=== PATIENT | male | born 1955 ===

== ENCOUNTER 2016-09-04 17:10 | Observation (INO) | payer BC ==
[2016-09-04 17:51] VITALS: BMI 36.3
[2016-09-04] MEDS ORDERED: Aspirin 325 mg EC Tablets PO STA (19:38)
--- NOTE | 2016-09-04 19:38 | C.PDOC ---
History Of Present Illness 60 y/o male presents to the ED with complaints of chest pressure and occasional back pain, worsening since this morning. Back pain is now resolved but still has chest pressure, 4/10 discomfort. Pt speaking in complete sentences. Denies fever, chills, SOB, nausea, vomiting or any other complaints. Time Seen by Provider: 09/04/16 19:37 Chief Complaint (Nursing): Back Pain History Per: Patient History/Exam Limitations: no limitations Onset/Duration Of Symptoms: Hrs Current Symptoms Are (Timing): Worse Quality Of Discomfort: "Pain" Severity: Moderate Pain Scale Rating Of: 4 Previous Symptoms: None Associated Symptoms: None Exacerbating Factor(s): Nothing Recent travel outside of the [place]: No Past Medical History Reviewed: Historical Data, Nursing Documentation, Vital Signs Vital Signs: Last Vital Signs Temp 98.9 F 09/04/16 17:51 Pulse 76 09/04/16 18:21 Resp 14 09/04/16 18:21 BP 117/73 09/04/16 18:21 Pulse Ox 96 09/04/16 19:48 - Medical History PMH: HTN Family History: States: No Known Family Hx - Social History Hx Tobacco Use: No Hx Alcohol Use: No Hx Substance Use: No - Immunization History Hx Tetanus Toxoid Vaccination: No Hx Influenza Vaccination: No Hx Pneumococcal Vaccination: No Review Of Systems Constitutional: Negative for: Fever, Chills Cardiovascular: Positive for: Chest Pain Respiratory: Negative for: Shortness of Breath Gastrointestinal: Negative for: Nausea, Vomiting Physical Exam - Physical Exam Appears: Non-toxic, No Acute Distress Skin: Warm, Dry, No Rash Head: Atraumatic, Normacephalic Eye(s): bilateral: Normal Inspection Oral Mucosa: Moist Neck: Supple Chest: Symmetrical Cardiovascular: Rhythm Regular, No Murmur Respiratory: No Accessory Muscle Use, No Rales, No Rhonchi, No Wheezing Gastrointestinal/Abdominal: Bowel Sounds (normal), Soft, No Tenderness, No Guarding, No Rebound, Other (obese) Back: No CVA Tenderness Extremity: Normal ROM, Pedal Edema (trace) Extremity: Bilateral: Atraumatic, Normal Color And Temperature, Normal ROM Pulses: Left Dorsalis Pedis: Normal, Right Dorsalis Pedis: Normal Neurological/Psych: Oriented x3, Normal Speech, Normal Cognition Gait: Steady ED Course And Treatment - Laboratory Results Result Diagrams: 09/04/16 19:56 09/04/16 19:56 ECG: Interpreted By Me, Viewed By Me ECG Rhythm: Sinus Rhythm (72), Nonspecific Changes O2 Sat by Pulse Oximetry: 96 (room air) Pulse Ox Interpretation: Normal - Radiology CXR: Interpreted by Me, Viewed By Me CXR Interpretation: Yes: Other (coiled aorta). No: Infiltrates, Fracture, Pnemothorax Progress Note: cardiac work up Disposition Discussed With Dr.: Savage Cooper Comment: accepted the pt onhis service and took over the care at 9PM Doctor Will See Patient In The: ED Counseled Patient/Family Regarding: Studies Performed, Diagnosis - Disposition Disposition: HOSPITALIZED Disposition Time: 19:37 Condition: FAIR - POA Present On Arrival: Poor Glycemic Control - Clinical Impression Clinical Impression: Low back pain, Chest pain - Scribe Statement The provider has reviewed the documentation as recorded by the Jorgeibjill Sewell Provider Attestation: All medical record entries made by the Scribe were at my direction and personally dictated by me. I have reviewed the chart and agree that the record accurately reflects my personal performance of the history, physical exam, medical decision making, and the department course for this patient. I have also personally directed, reviewed, and agree with the discharge instructions and disposition. Decision To Admit - Pt Status Changed To: Hospital Disposition Of: Observation - . Bed Request Type: Telemetry Admitting Physician: Savage Cooper Patient Diagnosis: Low back pain, Chest pain
[2016-09-04] MEDS ORDERED: Aspirin 325 mg EC Tablets PO ONE (19:56)
[2016-09-04 19:59] LABS: BASO % 0.3 % (0.0-2.0); EOS # 0.3 K/uL (0.0-0.7); EOS % 4.8 % (0.0-4.0); HEMATOCRIT 42.3 % (35.0-51.0); LYMPH % 32.4 % (20.0-40.0); MEAN CELL VOLUME 88.2 fL (80.0-94.0); MEAN CORPUSCULAR HGB CONC 34.1 g/dL (33.0-37.0); MEAN PLATELET VOLUME 9.8 fL (7.2-11.7); MONO # 0.6 K/uL (0.0-0.8); MONO % 9.6 % (0.0-10.0); NRBC % 0.1 % (0.0-2.0); RED CELL DISTRIBUTION WIDTH 14.2 % (11.5-14.5); WHITE BLOOD COUNT 6.3 K/uL (4.8-10.8)
[2016-09-04 20:07] LABS: INR 1.1
[2016-09-04 20:09] LABS: CHLORIDE 102 mmol/L (98-107); POTASSIUM 3.8 mmol/L (3.6-5.2); SODIUM 143 mmol/L (132-148)
[2016-09-04 20:11] LABS: BILIRUBIN,TOTAL 0.7 mg/dL (0.2-1.3); GFR AFRICAN-AMERICAN > 60
[2016-09-04 20:12] LABS: ALB/GLOB RATIO 1.3 (1.0-2.1); ALKALINE PHOSPHATASE 64 U/L (38-126); ALT/SGPT 37 U/L (21-72); AST/SGOT 28 U/L (17-59); BLOOD UREA NITROGEN 22 mg/dL (9-20); CALCIUM 9.3 mg/dl (8.6-10.4); CARBON DIOXIDE 20 mmol/L (22-30); GLUCOSE,RANDOM 168 mg/dL (75-110); TOTAL PROTEIN 7.8 g/dL (6.3-8.3)
[2016-09-04 20:36] LABS: RBC URINE < 1 /hpf (0-3); URINE BILIRUBIN NEGATIVE (NEGATIVE); URINE BLOOD NEGATIVE (NEGATIVE); URINE COLOR Yellow (YELLOW); URINE GLUCOSE (UA) NORMAL (Normal); URINE HYALINE CAST >20 /lpf (0-2); URINE KETONE NEGATIVE (NEGATIVE); URINE LEUKOCYTE ESTERASE TRACE Leu/uL (Negative); URINE PROTEIN NEGATIVE (NEGATIVE); URINE UROBILINOGEN NORMAL mg/dL (0.2-1.0); WBC URINE 3 /hpf (0-5)
--- NOTE | 2016-09-04 21:08 | CP.PCM.HP ---
<Adryan Davis - Last Filed: 09/05/16 01:45> History of Present Illness - History of Present Illness History of Present Illness: CC: "I had pain and pressure in my chest, and I have back pain that's different from ever before." HPI: 60 y.o. male with PMHx HTN, hyperlipidemia - presents to the ED c/ o chest pain and L sided chest pressure since 4pm. 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 He admits the chest pain was associated with a feeling of pressure in the left chest. He denies radiation of chest pain, and nothing made it better or worse. Patient states that Chest pain lasted for approximately 30 minutes, and resolved upon arrival to the ED (prior to administration of ASA). He admits to swelling of his lower extremities nightly for several months and SOB after going up 3 flights of stairs for the same time period. He denies orthopnea. Pt denies fever, chills, change in vision, dizziness, headache, SOB, abdominal pain , nausea, vomiting, LE pain, or any additional acute complaints. Patient also complains of intermittent mid-left back pain that has been present for several years, exacerbated by increased activity. Most recently, he walked over 30 blocks, and his back pain became worst at 8/10. Currently his back pain is 6/ 10. Extra strength Tylenol has helped moderately. ED course: ASA 325, Ct angio r/o aortic dissection. ROS: General: Weight loss of 5lbs/2 mos. Weakness "all of the time" past 1 month. Pt denies fever, chills, night sweats. Skin: denies itching, rash. HEENT: Pt denies OBRIEN, dizziness, change in vision, change in hearing, sore throat , dysphagia, congestion. Cardio: c/o swelling in feet every evening. Pt denies orthopnea, positional chest pain. Respiratory: dyspnea on exertion (after 3rd flight of stairs). Pt denies, cough , sputum. GI: pt denies abdominal pain, d/c/n/v, dysphagia. : pt denies dysuria, change in freq. PMH: HTN, hyperlipidemia. PSHx: appendectomy, tonsilectomy Meds: Norvasc 10mg PO qd; Lipitor 40mg PO qd; Losartan 100mg PO qd; HCTZ 12.5mg PO qd; MV Allergies: absent: food, environmental, medication FamHx: Mom [place] (65 y.o.), maternal aunt [place] (55 y.o.) SocHx: Pt denies use of tobacco, alcohol, drugs. Pt. lives [place] [facility] [address] [address] [place], works in IT (desk job) in [employer]. PMD: Dr. Eugenie Carr Present on Admission - Present on Admission Any Indicators Present on Admission: No Review of Systems - Constitutional Constitutional: As Per HPI - EENT Eyes: As Per HPI - Cardiovascular Cardiovascular: As Per HPI - Respiratory Respiratory: As Per HPI - Gastrointestinal Gastrointestinal: As Per HPI - Genitourinary Genitourinary: As Per HPI - Musculoskeletal Musculoskeletal: Back Pain. absent: Numbness, Tingling - Integumentary Integumentary: absent: Bleeding Lesions, Dry Skin, New Lesions - Neurological Neurological: absent: Confusion, Dizziness, Weakness - Psychiatric Psychiatric: absent: Anxiety, Confusion, Irritability - Hematologic/Lymphatic Hematologic: absent: Easy Bleeding, Easy Bruising, Lymphadenopathy Past Patient History - Past Social History Smoking Status: Never Smoked - CARDIAC Hx Hypertension: Yes - PSYCHIATRIC Hx Substance Use: No - SURGICAL HISTORY Hx Surgeries: No Meds Allergies/Adverse Reactions: Allergies Allergy/AdvReac Type Severity Reaction Status Date / Time No Known Allergies Allergy Verified 09/04/16 17:46 Physical Exam - Constitutional Appears: Non-toxic, No Acute Distress - Head Exam Head Exam: ATRAUMATIC, NORMAL INSPECTION - Eye Exam Eye Exam: EOMI, Normal appearance, PERRL Pupil Exam: NORMAL ACCOMODATION - ENT Exam ENT Exam: Mucous Membranes Moist - Neck Exam Neck exam: Negative for: Lymphadenopathy, Tenderness - Respiratory Exam Respiratory Exam: Clear to Auscultation Bilateral, NORMAL BREATHING PATTERN. absent: Rales, Wheezes - Cardiovascular Exam Cardiovascular Exam: REGULAR RHYTHM. absent: Tachycardia, Diastolic murmur - GI/Abdominal Exam GI & Abdominal Exam: Normal Bowel Sounds, Soft. absent: Tenderness - Extremities Exam Extremities exam: Positive for: normal inspection. Negative for: pedal edema, tenderness - Back Exam Back exam: NORMAL INSPECTION. absent: CVA tenderness (L), CVA tenderness (R), paraspinal tenderness, tenderness Additional comments: Patient reports back pain, however no pain on palpation No change in pain with flexion / extension - Neurological Exam Neurological exam: Alert, CN II-XII Intact, Oriented x3 - Psychiatric Exam Psychiatric exam: Normal Affect, Normal Mood - Skin Skin Exam: Dry, Intact, Normal Color, Warm Results - Vital Signs Recent Vital Signs: Last Vital Signs Temp 98.9 F 09/04/16 17:51 Pulse 76 09/04/16 18:21 Resp 14 09/04/16 18:21 BP 117/73 09/04/16 18:21 Pulse Ox 96 09/04/16 21:04 - Labs Result Diagrams: 09/04/16 19:56 09/04/16 19:56 Labs: Laboratory Results - last 24 hr 09/04/16 09/04/16 09/04/16 19:56 19:56 19:56 WBC 6.3 RBC 4.80 Hgb 14.4 Hct 42.3 MCV 88.2 MCH 30.0 MCHC 34.1 RDW 14.2 Plt Count 200 MPV 9.8 Neut % (Auto) 52.9 Lymph % (Auto) 32.4 Worth % (Auto) 9.6 Eos % (Auto) 4.8 H Baso % (Auto) 0.3 Neut # 3.3 Lymph # 2.0 Worth # 0.6 Eos # 0.3 Baso # 0.0 PT 12.2 INR 1.1 APTT 30 Sodium 143 Potassium 3.8 Chloride 102 Carbon Dioxide 20 L Anion Gap 25 H BUN 22 H Creatinine 1.3 Est GFR ( Amer) > 60 Est GFR (Non-Af Amer) 57 Random Glucose 168 H Calcium 9.3 Total Bilirubin 0.7 AST 28 ALT 37 Alkaline Phosphatase 64 Troponin I < 0.0120 NT-Pro-B Natriuret Pep 197 Total Protein 7.8 Albumin 4.4 Globulin 3.4 Albumin/Globulin Ratio 1.3 Lipase 96 Urine Color Urine Clarity Urine pH Ur Specific [place] Urine Protein Urine Glucose (UA) Urine Ketones Urine Blood Urine Nitrate Urine Bilirubin Urine Urobilinogen Ur Leukocyte Esterase Urine WBC (Auto) Urine RBC (Auto) Ur Squamous Epith Cells Hyaline Casts 09/04/16 20:05 WBC RBC Hgb Hct MCV MCH MCHC RDW Plt Count MPV Neut % (Auto) Lymph % (Auto) Worth % (Auto) Eos % (Auto) Baso % (Auto) Neut # Lymph # Worth # Eos # Baso # PT INR APTT Sodium Potassium Chloride Carbon Dioxide Anion Gap BUN Creatinine Est GFR ( Amer) Est GFR (Non-Af Amer) Random Glucose Calcium Total Bilirubin AST ALT Alkaline Phosphatase Troponin I NT-Pro-B Natriuret Pep Total Protein Albumin Globulin Albumin/Globulin Ratio Lipase Urine Color Yellow Urine Clarity Clear Urine pH 5.0 Ur Specific [place] 1.019 Urine Protein Negative Urine Glucose (UA) Normal Urine Ketones Negative Urine Blood Negative Urine Nitrate Negative Urine Bilirubin Negative Urine Urobilinogen Normal Ur Leukocyte Esterase Trace Urine WBC (Auto) 3 Urine RBC (Auto) < 1 Ur Squamous Epith Cells < 1 Hyaline Casts >20 H Assessment & Plan - Assessment and Plan (Free Text) Assessment: Chest pain * ECG Rhythm: Sinus Rhythm (72), Nonspecific Changes * r/o aortic dissection * f/u CT angio chest - negative * D5W-NS 100cc/hr to aid kidney function (BUN 22 / Cr 1.3 on admission) * ASA 81 * f/u FLP, A1c, TSH, free T4 * Resume home meds: Norvasc 10mg PO qd; Lipitor 40mg PO qd; Losartan 100mg PO qd ; HCTZ 12.5mg PO qd * Pain - Tylenol 650mg PO Q6H PRN * Oxygen 2L NC Hyaline Cast on UA * UA negative except for hylaine casts > 20 * f/u urine eosinophils * Continue workup as outpatient * Anion Gap 25 - monitor Lower back pain * Currently stable * No back pain on palpation Prophylaxis * D5W-NS 100cc/hr * SCDs C/I due to pedal edema * Pepcid 20mg PO * Heart healthy diet. - Date & Time Date: 09/04/16 Time: 21:15 <Savage Cooper P - Last Filed: 09/05/16 07:15> Results - Vital Signs Recent Vital Signs: Last Vital Signs Temp 97.5 F L 09/05/16 04:00 Pulse 63 09/05/16 04:00 Resp 20 09/05/16 04:00 BP 117/76 09/05/16 04:00 Pulse Ox 98 09/05/16 04:00 - Labs Result Diagrams: 09/04/16 19:56 09/05/16 06:52 Labs: Laboratory Results - last 24 hr 09/05/16 09/05/16 03:03 06:52 Sodium 143 Potassium 3.8 Chloride 102 Carbon Dioxide 23 Anion Gap 22 H BUN 24 H Creatinine 1.2 Est GFR ( Amer) > 60 Est GFR (Non-Af Amer) > 60 Random Glucose 111 H Calcium 9.2 Phosphorus 4.1 Magnesium 2.0 Total Bilirubin 0.9 AST 27 ALT 41 Alkaline Phosphatase 66 Total Creatine Kinase 126 CK-MB (Mass) 0.48 Troponin I, Quant < 0.0120 Total Protein 7.5 Albumin 4.1 Globulin 3.4 Albumin/Globulin Ratio 1.2 Triglycerides 164 H Cholesterol 116 HDL Cholesterol 25 L Attending/Attestation - Attestation I have personally seen and examined this patient.: Yes I have fully participated in the care of the patient.: Yes I have reviewed all pertinent clinical information: Yes Notes (Text): 09/05/16 07:11 Atypical cp intermittent for few seconds, c/o some back pain, ed w/u negative including, CTA dissection study, EKG, troponin, slight low bicarb noticed, with anion gap which has not corrected dispite dextrose overnight, urine also showed cast, will repeat toponin, urinalysis, osm toan, vbg shock panel, clinically patient has been stable without any signs or symptoms of shock.
[2016-09-04] MEDS ORDERED: Rosuvastatin Calcium 2.5 mg Tab PO SCH (22:00)
[2016-09-04] MEDS ORDERED: Iodixanol 320 MG/ML 100 ML BOTTLE IV ONE (22:26)
--- NOTE | 2016-09-04 23:24 | CT ---
EXAM: CT Angiography Chest With Intravenous Contrast CLINICAL HISTORY: 60 years old, male; Pain; Chest pain; Additional info: Poss aortic disection TECHNIQUE: Axial computed tomographic angiography images of the chest with intravenous contrast using pulmonary embolism protocol. This CT exam was performed using one or more of the following dose reduction techniques: automated exposure control, adjustment of the mA and/or kV according to patient size, and/or use of iterative reconstruction technique. MIP reconstructed images were created and reviewed. Coronal and sagittal reformatted images were created and reviewed. CONTRAST: 100 mL of [id number] administered intravenously. COMPARISON: No relevant prior studies available. FINDINGS: Pulmonary arteries: No pulmonary embolism. Aorta: No thoracic aortic aneurysm. No dissection. Lungs: No mass. No consolidation. Trace right basilar atelectasis. Pleural spaces: No significant effusion. No pneumothorax. Heart: No cardiomegaly. No significant pericardial effusion. No evidence of right heart dysfunction. Bones: No acute fracture. Lymph nodes: No pathologically enlarged lymph nodes. IMPRESSION: No aortic dissection or pulmonary embolus.
[2016-09-05] MEDS: Dextrose 5%/0.9% NS 1,000 ML IV SCH ×4 (00:04→22:19)
[2016-09-05 07:04] LABS: ALB/GLOB RATIO 1.2 (1.0-2.1); ALKALINE PHOSPHATASE 66 U/L (38-126); ALT/SGPT 41 U/L (21-72); AST/SGOT 27 U/L (17-59); BILIRUBIN,TOTAL 0.9 mg/dL (0.2-1.3); BLOOD UREA NITROGEN 24 mg/dL (9-20); CALCIUM 9.2 mg/dl (8.6-10.4); CARBON DIOXIDE 23 mmol/L (22-30); CHLORIDE 102 mmol/L (98-107); CHOLESTEROL 116 mg/dL (0-199); GFR AFRICAN-AMERICAN > 60; GLUCOSE,RANDOM 111 mg/dL (75-110); PHOSPHOROUS 4.1 mg/dL (2.5-4.5); POTASSIUM 3.8 mmol/L (3.6-5.2); SODIUM 143 mmol/L (132-148); TOTAL PROTEIN 7.5 g/dL (6.3-8.3)
[2016-09-05 07:31] LABS: THYROID STIMULATING HORMONE 2.98 mIU/L (0.46-4.68)
--- NOTE | 2016-09-05 07:57 | CP.PCM.PN ---
<French Mclaughlin - Last Filed: 09/06/16 00:14> Subjective - Date & Time of Evaluation Date of Evaluation: 09/05/16 Time of Evaluation: 07:51 - Subjective Subjective: PGY-[address] Francis's service: Patient seen and examined at beside. Nursing reports no acute events overnight. Patient is resting comfortably in bed in no acute distress. Patient states that his symptoms have improved greatly and experienced no chest pain, chest pressure or palpitations overnight. Patient states that he did not sleep very well last night since the nursing staff was having difficulty drawing blood from his arms. Patient states that he ate a little this morning without any problems and has been urinating okay with no recent bowel movement due to low food ingestion. Patient denies fevers, chills, chest pain, palpitations, SOB, abdominal pain, nausea, vomiting, diarrhea, constipation or leg swelling. Objective - Vital Signs/Intake and Output Vital Signs (last 24 hours): Temp Pulse Resp BP Pulse Ox 97.5 F L 63 20 117/76 98 09/05/16 04:00 09/05/16 04:00 09/05/16 04:00 09/05/16 04:00 09/05/16 04:00 Intake and Output: 09/05/16 09/05/16 06:59 18:59 Intake Total 700 Balance 700 - Medications Medications: Current Medications Amlodipine Besylate (Norvasc) 10 mg PO DAILY [facility] Famotidine (Pepcid) 20 mg PO BID [facility] Hydrochlorothiazide (Microzide) 12.5 mg PO DAILY [facility] Dextrose/Sodium Chloride (Dextrose 5%/0.9% Ns 1000 Ml) 1,000 mls @ 100 mls/hr IV .Q10H [facility] Last Admin: 09/05/16 00:04 Dose: 100 mls/hr Losartan Potassium (Cozaar) 100 mg PO DAILY [facility] Pneumococcal Polyvalent Vaccine (Pneumovax 23 Vaccine) 0.5 ml IM .ONCE ONE Stop: 09/06/16 10:01 Rosuvastatin Calcium (Crestor) 10 mg PO HS [facility] - Labs Labs: 09/05/16 06:52 PT 12.2 SECONDS (9.7-12.2) 09/04/16 19:56 INR 1.1 09/04/16 19:56 APTT 30 SECONDS (21-34) 09/04/16 19:56 - Constitutional Appears: Non-toxic, No Acute Distress - Head Exam Head Exam: ATRAUMATIC, NORMAL INSPECTION, NORMOCEPHALIC - Eye Exam Eye Exam: EOMI, Normal appearance. absent: Scleral icterus Pupil Exam: PERRL - ENT Exam ENT Exam: Mucous Membranes Moist - Neck Exam Neck Exam: absent: Lymphadenopathy Additional comments: NO JVD due to excess body habitus in jaw line - Respiratory Exam Respiratory Exam: Clear to Ausculation Bilateral, NORMAL BREATHING PATTERN. absent: Rales, Rhonchi, Wheezes - Cardiovascular Exam Cardiovascular Exam: REGULAR RHYTHM, +S1, +S2. absent: +S4, Murmur - GI/Abdominal Exam GI & Abdominal Exam: Soft, Normal Bowel Sounds. absent: Distended, Tenderness - Extremities Exam Extremities Exam: Normal Inspection. absent: Pedal Edema, Tenderness - Back Exam Back Exam: absent: paraspinal tenderness, vertebral tenderness Additional comments: Skin tags noted on chest back - Neurological Exam Neurological Exam: Alert, Awake, Oriented x3 - Psychiatric Exam Psychiatric exam: Normal Affect, Normal Mood - Skin Skin Exam: Normal Color, Warm Assessment and Plan - Assessment and Plan (Free Text) Plan: Chest pain R/o aortic dissection ECG Rhythm: Sinus Rhythm (72), Nonspecific Changes CT angio chest (09/05/16) - negative for PE, aortic dissection CXR (09/05/16): Mild venous congestion. Mild patchy bibasilar airspace opacities. (See full report) ERIKA negative x 3 f/u ECHO ASA 81 Tylenol 650mg PO Q6H PRN Crestor 10mg PO HS Oxygen 2L NC FLP - Tri 164, Total Chol 116, LDL 62, HDL 25 A1C: 7.9 TSH free T4: WNL Acute Kidney Injury BUN 22 / Cr 1.3 on admission - Cr slightly improved to 1.2 NS @ 100cc/hr UA (09/05/16): > 20 hyaline casts Type two diabetes mellitus Newly diagnosed A1C: 7.9 Accuchecks Discontinued D5/NS ISS- medium - will consider metformin if Cr decreases HTN Normotensive NS @ 100cc/hr Resume home meds: Norvasc 10mg PO qd; Lipitor 40mg PO qd; Losartan 100mg PO qd; HCTZ 12.5mg PO qd Hyaline Cast on UA UA negative except for hylaine casts > 20 f/u urine eosinophils Continue workup as outpatient Anion Gap 25 - monitor Lower back pain Currently stable No back pain on palpation Prophylaxis NS @100cc/hr SCDs C/I due to pedal edema Pepcid 20mg PO Heart healthy diet Discussed with Dr. Penny Mclaughlin <Dada Francis - Last Filed: 10/10/16 15:01> Objective - Vital Signs/Intake and Output Vital Signs (last 24 hours): Temp Pulse Resp BP Pulse Ox 98.5 F 78 20 137/79 99 09/07/16 16:00 09/07/16 16:00 09/07/16 16:00 09/07/16 16:00 09/07/16 16:00 - Labs Labs: 09/07/16 06:07 09/07/16 06:07 PT 12.2 SECONDS (9.7-12.2) 09/04/16 19:56 INR 1.1 09/04/16 19:56 APTT 30 SECONDS (21-34) 09/04/16 19:56 Attending/Attestation - Attestation I have personally seen and examined this patient.: Yes I have fully participated in the care of the patient.: Yes I have reviewed all pertinent clinical information, including history, physical exam and plan: Yes Notes (Text): Chest pain Acute Kidney Injury Type two diabetes mellitus Newly diagnosed
[2016-09-05 08:22] LABS: VENOUS BLOOD GAS BASE EXCESS 1.2 mmol/L (0.0-2.0); VENOUS BLOOD GAS PCO2 50 mmHg (40-60); VENOUS BLOOD PH 7.35 (7.32-7.43)
[2016-09-05 08:39] LABS: BASO % 0.5 % (0.0-2.0); EOS # 0.3 K/uL (0.0-0.7); EOS % 4.6 % (0.0-4.0); HEMATOCRIT 40.3 % (35.0-51.0); LYMPH % 35.9 % (20.0-40.0); MEAN CELL VOLUME 88.2 fL (80.0-94.0); MEAN CORPUSCULAR HEMOGLOBIN 30.7 pg (27.0-31.0); MEAN CORPUSCULAR HGB CONC 34.8 g/dL (33.0-37.0); MEAN PLATELET VOLUME 9.3 fL (7.2-11.7); MONO # 0.5 K/uL (0.0-0.8); MONO % 8.9 % (0.0-10.0); NRBC % 0.1 % (0.0-2.0); RED CELL DISTRIBUTION WIDTH 14.4 % (11.5-14.5); WHITE BLOOD COUNT 5.7 K/uL (4.8-10.8)
--- NOTE | 2016-09-05 08:42 | RAD ---
PROCEDURE: CHEST RADIOGRAPH, 1 VIEW HISTORY: chest pain COMPARISON: None available. FINDINGS: LUNGS: Mild venous congestion. Mild patchy bibasilar airspace opacities. PLEURA: No pneumothorax or pleural fluid seen. CARDIOVASCULAR: Tortuous aorta. OSSEOUS STRUCTURES: Degenerative changes in the spine. VISUALIZED UPPER ABDOMEN: Normal. OTHER FINDINGS: None. IMPRESSION: Mild venous congestion. Mild patchy bibasilar airspace opacities.
[2016-09-05] MEDS: Enoxaparin 40 mg Syringe SC SCH (10:32)
[2016-09-05 12:12] LABS: RBC URINE < 1 /hpf (0-3); URINE BILIRUBIN NEGATIVE (NEGATIVE); URINE BLOOD NEGATIVE (NEGATIVE); URINE COLOR Yellow (YELLOW); URINE GLUCOSE (UA) 2+ mg/dL (Normal); URINE KETONE NEGATIVE (NEGATIVE); URINE LEUKOCYTE ESTERASE NEG Leu/uL (Negative); URINE PROTEIN NEGATIVE (NEGATIVE); URINE UROBILINOGEN NORMAL mg/dL (0.2-1.0); WBC URINE < 1 /hpf (0-5)
[2016-09-06] MEDS: Sodium Chloride 0.9% 1,000 ML IV SCH ×4 (00:21→20:15)
[2016-09-06] MEDS: (Novolin R) Insulin Human Regular 100 units/ml vial SC SCH ×4 (07:30→22:19)
[2016-09-06 08:03] LABS: BASO % 0.5 % (0.0-2.0); EOS # 0.3 K/uL (0.0-0.7); EOS % 5.4 % (0.0-4.0); HEMATOCRIT 40.6 % (35.0-51.0); LYMPH # 1.5 K/uL (1.0-4.3); LYMPH % 30.9 % (20.0-40.0); MEAN CELL VOLUME 88.2 fL (80.0-94.0); MEAN CORPUSCULAR HEMOGLOBIN 29.7 pg (27.0-31.0); MEAN CORPUSCULAR HGB CONC 33.7 g/dL (33.0-37.0); MEAN PLATELET VOLUME 9.5 fL (7.2-11.7); MONO # 0.4 K/uL (0.0-0.8); MONO % 8.9 % (0.0-10.0); NRBC % 0.1 % (0.0-2.0); RED CELL DISTRIBUTION WIDTH 14.2 % (11.5-14.5); WHITE BLOOD COUNT 4.9 K/uL (4.8-10.8)
[2016-09-06 08:18] LABS: CHLORIDE 101 mmol/L (98-107); SODIUM 140 mmol/L (132-148)
[2016-09-06 08:20] LABS: GFR AFRICAN-AMERICAN > 60
[2016-09-06 08:21] LABS: ALB/GLOB RATIO 1.2 (1.0-2.1); ALKALINE PHOSPHATASE 60 U/L (38-126); AST/SGOT 22 U/L (17-59); BILIRUBIN,TOTAL 0.8 mg/dL (0.2-1.3); BLOOD UREA NITROGEN 15 mg/dL (9-20); CARBON DIOXIDE 22 mmol/L (22-30); GLUCOSE,RANDOM 122 mg/dL (75-110); PHOSPHOROUS 2.9 mg/dL (2.5-4.5)
[2016-09-06 08:22] LABS: ALT/SGPT 39 U/L (21-72); CALCIUM 8.6 mg/dl (8.6-10.4); MAGNESIUM 1.8 mg/dL (1.6-2.3)
--- NOTE | 2016-09-06 09:05 | CARD ---
APPROVED REPORT EKG Measurement Heart [id number] [id number] [id number] <Conclusion> Normal sinus rhythm Minimal voltage criteria for LVH, may be normal variant Borderline ECG
--- NOTE | 2016-09-06 09:31 | CP.PCM.CON ---
History of Present Illness - History of Present Illness History of Present Illness: CC: chest pain Admitted with moderate intensity chest pain in the precordial region lasting minutes without radiation or exacerbating or relieving factors Systems review: dyspnea and edema Denied palpitations syncope Past medical: systemic hypertension Hyperlipidemia Obesity Past surgery:appendectomy, tonsilectomy Social: denied smoking alcohol or drug abuse No family history of premature coronary disease or sudden Past Patient History - Past Medical History & Family History Past Medical History?: Yes - Past Social History Smoking Status: Never Smoked - CARDIAC Hx Hypertension: Yes - PULMONARY Hx Respiratory Disorders: No - NEUROLOGICAL Hx Neurological Disorder: No - HEENT Hx HEENT Problems: No - RENAL Hx Chronic Kidney Disease: No - ENDOCRINE/METABOLIC Hx Endocrine Disorders: No - HEMATOLOGICAL/ONCOLOGICAL Hx Blood Disorders: No - INTEGUMENTARY Hx Dermatological Problems: No - MUSCULOSKELETAL/RHEUMATOLOGICAL Hx Musculoskeletal Disorders: No Hx Falls: No - GASTROINTESTINAL Hx Gastrointestinal Disorders: No - GENITOURINARY/GYNECOLOGICAL Hx Genitourinary Disorders: No - PSYCHIATRIC Hx Substance Use: No - SURGICAL HISTORY Hx Surgeries: No - ANESTHESIA Hx Anesthesia: Yes Hx Anesthesia Reactions: No Hx Malignant Hyperthermia: No Has any member of the family had a problem w/ anesthesia?: No Meds Allergies/Adverse Reactions: Allergies Allergy/AdvReac Type Severity Reaction Status Date / Time No Known Allergies Allergy Verified 09/04/16 17:46 - Medications Medications: Current Medications Amlodipine Besylate (Norvasc) 10 mg PO DAILY [facility] Last Admin: 09/05/16 10:32 Dose: 10 mg Aspirin (Ecotrin) 81 mg PO DAILY [facility] [place] Enoxaparin Sodium (Lovenox) 40 mg SC DAILY [facility] [place] Last Admin: 09/05/16 10:32 Dose: 40 mg Famotidine (Pepcid) 20 mg PO BID [facility] Last Admin: 09/05/16 17:28 Dose: 20 mg Hydralazine HCl (Apresoline) 25 mg PO QID [facility] Hydrochlorothiazide (Microzide) 12.5 mg PO DAILY [facility] [place] Last Admin: 09/05/16 10:32 Dose: 12.5 mg Sodium Chloride (Sodium Chloride 0.9%) 1,000 mls @ 100 mls/hr IV .Q10H [facility] [place] Last Admin: 09/06/16 00:21 Dose: 100 mls/hr Insulin Human Regular (Novolin R) 0 unit SC [facility] PRN Reason: Protocol Last Admin: 09/06/16 07:30 Dose: Not Given Losartan Potassium (Cozaar) 100 mg PO DAILY [facility] Last Admin: 09/05/16 10:32 Dose: 100 mg Pneumococcal Polyvalent Vaccine (Pneumovax 23 Vaccine) 0.5 ml IM .ONCE ONE Stop: 09/06/16 10:01 Rosuvastatin Calcium (Crestor) 10 mg PO HS [facility] Last Admin: 09/05/16 22:19 Dose: 10 mg Physical Exam - Head Exam Head Exam: NORMAL INSPECTION - Eye Exam Eye Exam: EOMI - ENT Exam ENT Exam: Normal Exam - Neck Exam Neck exam: Positive for: Normal Inspection - Respiratory Exam Respiratory Exam: Clear to Auscultation Bilateral - Cardiovascular Exam Cardiovascular Exam: REGULAR RHYTHM - Extremities Exam Additional comments: Trace edema DP faint Results - Vital Signs Recent Vital Signs: Last Vital Signs Temp 98.0 F 09/06/16 07:56 Pulse 63 09/06/16 07:56 Resp 20 09/06/16 07:56 BP 137/77 09/06/16 07:56 Pulse Ox 100 09/06/16 07:56 - Labs Result Diagrams: 09/07/16 06:07 09/07/16 06:07 Labs: Laboratory Results - last 24 hr 09/05/16 09/05/16 09/06/16 12:04 12:04 07:53 WBC 4.9 RBC 4.60 Hgb 13.7 Hct 40.6 MCV 88.2 MCH 29.7 MCHC 33.7 RDW 14.2 Plt Count 184 MPV 9.5 Neut % (Auto) 54.3 Lymph % (Auto) 30.9 [place] % (Auto) 8.9 Eos % (Auto) 5.4 H Baso % (Auto) 0.5 Neut # 2.7 Lymph # 1.5 [place] # 0.4 Eos # 0.3 Baso # 0.0 Sodium Potassium Chloride Carbon Dioxide Anion Gap BUN Creatinine Est GFR ( Amer) Est GFR (Non-Af Amer) Random Glucose Calcium Phosphorus Magnesium Total Bilirubin AST ALT Alkaline Phosphatase Total Creatine Kinase 116 CK-MB (Mass) 0.48 Troponin I, Quant < 0.0120 Total Protein Albumin Globulin Albumin/Globulin Ratio Urine Color Yellow Urine Clarity Clear Urine pH 6.0 Ur Specific [place] 1.024 Urine Protein Negative Urine Glucose (UA) 2+ H Urine Ketones Negative Urine Blood Negative Urine Nitrate Negative Urine Bilirubin Negative Urine Urobilinogen Normal Ur Leukocyte Esterase Neg Urine WBC (Auto) < 1 Urine RBC (Auto) < 1 Ur Squamous Epith Cells 1 09/06/16 07:53 WBC RBC Hgb Hct MCV MCH MCHC RDW Plt Count MPV Neut % (Auto) Lymph % (Auto) [place] % (Auto) Eos % (Auto) Baso % (Auto) Neut # Lymph # [place] # Eos # Baso # Sodium 140 Potassium 4.0 Chloride 101 Carbon Dioxide 22 Anion Gap 22 H BUN 15 Creatinine 0.9 Est GFR ( Amer) > 60 Est GFR (Non-Af Amer) > 60 Random Glucose 122 H Calcium 8.6 Phosphorus 2.9 Magnesium 1.8 Total Bilirubin 0.8 AST 22 ALT 39 Alkaline Phosphatase 60 Total Creatine Kinase CK-MB (Mass) Troponin I, Quant Total Protein 7.0 Albumin 3.9 Globulin 3.1 Albumin/Globulin Ratio 1.2 Urine Color Urine Clarity Urine pH Ur Specific [place] Urine Protein Urine Glucose (UA) Urine Ketones Urine Blood Urine Nitrate Urine Bilirubin Urine Urobilinogen Ur Leukocyte Esterase Urine WBC (Auto) Urine RBC (Auto) Ur Squamous Epith Cells Assessment & Plan - Assessment and Plan (Free Text) Assessment: Case reviewed Chest pain syndrome on a background of some vascular risk factors and no definitive evidence of myocardial injury; EKG was unremarkable; Echo showed mild dilatation of the LV with normal systolic ejection fraction However cardiovascular imaging does suggest the presence of at the least non obstructive coronary disease as evidenced by the CT angio and the echo showing calcification on the aortic valves surrogates of coronary disease if KS is excluded would obtain a stress test and continue with risk factor modificaiton
--- NOTE | 2016-09-06 09:56 | CARD ---
APPROVED REPORT EXAM: Two-dimensional and M-mode echocardiogram with Doppler and color Doppler. Other Information Quality : AverageRhythm : INDICATION Dyspnea Chest Pain M-Mode DIMENSIONS RVDd1.85 (2.1-3.2cm)Left Atrium (MM)4.37 (2.5-4.0cm) IVSd1.20 (0.7-1.1cm)Aortic Root4.12 (2.2-3.7cm) LVDd7.09 (4.0-5.6cm)Aortic Cusp Exc.2.23 (1.5-2.0cm) PWd1.20 (0.7-1.1cm)FS (%) 28 % LVDs5.07 (2.0-3.8cm)LVEF (%)54 (>50%) Mitral Valve MV E Dtmlhmow18.4cm/sMV A Sqetlnlx10.7cm/sE/A ratio0.8 TDI E/Lateral E'0.0E/Medial E'0.0 Tricuspid Valve TR Peak [id number]/sTR Peak Gr.[id number] LEFT VENTRICLE The Left Ventricle is moderately dilated on M mode. There is mild concentric left ventricular hypertrophy. Left ventricle systolic function is normal with Ejection Fraction of 50-55%. There is normal LV segmental wall motion. Transmitral Doppler flow pattern is normal for age.abnormal. No left ventricle thrombus noted on this study. RIGHT VENTRICLE The right ventricle is normal size. The right ventricular systolic function is normal. ATRIA The left atrium is mildly dilated. The right atrium size is normal. AORTIC VALVE The aortic valve is mildly thickened. The aortic valve is trileaflet. No aortic regurgitation is present. There is no aortic valvular stenosis. There is no aortic valvular vegetation. MITRAL VALVE Mitral annular calcification is mild. There is no evidence of mitral valve prolapse. There is no mitral valve stenosis. There is no mitral valve regurgitation noted. TRICUSPID VALVE The tricuspid valve is normal in structure. There is mild tricuspid regurgitation. Right ventricular systolic pressure is <30 mm Hg. There is no pulmonary hypertension. There is no tricuspid valve prolapse or vegetation. There is no tricuspid valve stenosis. PULMONIC VALVE The pulmonic valve is not well visualized. GREAT VESSELS The aortic root is mildly enlarged. IVC Doppler evaluation reveals normal flow patterns. PERICARDIAL EFFUSION There is no pericardial effusion. There is no pleural effusion. <Conclusion> The Left Ventricle is moderately dilated on M mode. There is mild concentric left ventricular hypertrophy. Left ventricle systolic function is normal with Ejection Fraction of 50-55%. Transmitral Doppler flow pattern is normal for age.abnormal. The right ventricle is normal size. The right ventricular systolic function is normal. The left atrium is mildly dilated. The right atrium size is normal. There is mild tricuspid regurgitation.
[2016-09-06] MEDS ORDERED: Pneumococcal 23-Valent Vaccine IM ONE (10:00)
[2016-09-06] MEDS: Enoxaparin 40 mg Syringe SC SCH (10:42)
--- NOTE | 2016-09-06 15:27 | CP.PCM.PN ---
<Cara Hernandez - Last Filed: 09/06/16 15:22> Subjective - Date & Time of Evaluation Date of Evaluation: 09/06/16 Time of Evaluation: 07:00 - Subjective Subjective: PGY1- Medicine Note- Dr. Francis's Service Patient seen and examined at bedside and in no acute distress. Patient has no complaints and is feeling okay today. Patient denies shortness of breath, chest pain, abdominal pain, nausea, vomiting, constipation, diarrhea. Objective - Vital Signs/Intake and Output Vital Signs (last 24 hours): Temp Pulse Resp BP Pulse Ox 98.0 F 63 20 137/77 100 09/06/16 07:56 09/06/16 07:56 09/06/16 07:56 09/06/16 07:56 09/06/16 07:56 Intake and Output: 09/06/16 09/06/16 06:59 18:59 Intake Total 2460 Balance 2460 - Medications Medications: Current Medications Amlodipine Besylate (Norvasc) 10 mg PO DAILY [facility] Last Admin: 09/06/16 10:42 Dose: 10 mg Aspirin (Ecotrin) 81 mg PO DAILY [facility] Last Admin: 09/06/16 10:42 Dose: 81 mg Enoxaparin Sodium (Lovenox) 40 mg SC DAILY [facility] Last Admin: 09/06/16 10:42 Dose: 40 mg Famotidine (Pepcid) 20 mg PO BID [facility] Last Admin: 09/06/16 10:42 Dose: 20 mg Hydralazine HCl (Apresoline) 25 mg PO QID [facility] Last Admin: 09/06/16 14:37 Dose: 25 mg Hydrochlorothiazide (Microzide) 12.5 mg PO DAILY [facility] Last Admin: 09/06/16 10:42 Dose: 12.5 mg Sodium Chloride (Sodium Chloride 0.9%) 1,000 mls @ 100 mls/hr IV .Q10H [facility] Last Admin: 09/06/16 10:15 Dose: Not Given Insulin Human Regular (Novolin R) 0 unit SC [facility] PRN Reason: Protocol Last Admin: 09/06/16 12:30 Dose: Not Given Losartan Potassium (Cozaar) 100 mg PO DAILY [facility] Last Admin: 09/05/16 10:32 Dose: 100 mg Rosuvastatin Calcium (Crestor) 10 mg PO HS [facility] Last Admin: 09/05/16 22:19 Dose: 10 mg - Labs Labs: 09/06/16 07:53 09/06/16 07:53 PT 12.2 SECONDS (9.7-12.2) 09/04/16 19:56 INR 1.1 09/04/16 19:56 APTT 30 SECONDS (21-34) 09/04/16 19:56 - Constitutional Appears: Well, Non-toxic, No Acute Distress - Head Exam Head Exam: ATRAUMATIC, NORMAL INSPECTION, NORMOCEPHALIC - Eye Exam Eye Exam: EOMI, Normal appearance, PERRL - ENT Exam ENT Exam: Mucous Membranes Moist, Normal Exam - Neck Exam Neck Exam: Full ROM, Normal Inspection. absent: Lymphadenopathy - Respiratory Exam Respiratory Exam: Clear to Ausculation Bilateral, NORMAL BREATHING PATTERN. absent: Rales, Rhonchi, Wheezes, Respiratory Distress, Stridor - Cardiovascular Exam Cardiovascular Exam: REGULAR RHYTHM, RRR. absent: Gallop, Rubs, Murmur - GI/Abdominal Exam GI & Abdominal Exam: Soft, Normal Bowel Sounds. absent: Distended, Firm, Guarding, Rigid - Extremities Exam Extremities Exam: Full ROM, Normal Inspection - Back Exam Back Exam: NORMAL INSPECTION - Neurological Exam Neurological Exam: Alert, Awake, Oriented x3 - Psychiatric Exam Psychiatric exam: Normal Affect, Normal Mood Assessment and Plan - Assessment and Plan (Free Text) Assessment: Chest pain r/o aortic dissection, r/o MS ECG Rhythm: Sinus Rhythm (72), Nonspecific Changes CT angio chest (09/05/16) - negative for PE, aortic dissection CXR (09/05/16): Mild venous congestion. Mild patchy bibasilar airspace opacities. (See full report) ERIKA negative x 3 ECHO (09/05): left ventricle is moderately dilated, mild concentric left ventricular hypertrophy, left ventricle systolic function is normal with ejection fraction of 50-55%m transmitral doppler flow pattern is normal for age , right ventricle is normal size meds: * ASA 81 * Tylenol 650mg PO Q6H PRN * Crestor 10mg PO HS * Oxygen 2L NC Labs: * FLP - Tri 164, Total Chol 116, LDL 62, HDL 25 * TSH, free T4: WNL Stress test to be done by Dr. Stovall on 09/07/16 Acute Kidney Injury BUN 22 / Cr 1.3 on admission - Cr improved to .9 (09/06) NS @ 100cc/hr UA (09/05/16): > 20 hyaline casts Type two diabetes mellitus Newly diagnosed HgA1C: 7.9 Accuchecks Discontinued D5/NS ISS- medium Metformin 500 mg BID to be started as creatinine has decreased to .9 -monitor LFTs HTN Normotensive NS @ 100cc/hr Resume home meds: Norvasc 10mg PO qd; Losartan 100mg PO qd; HCTZ 12.5mg PO qd Lipitor 40mg PO qd nonformulary, given Crestor 10 mg po HS Hyaline Cast on UA UA negative except for hylaine casts > 20 urine eosinophils negative Continue workup as outpatient Anion Gap 25 - monitor Lower back pain Currently stable No back pain on palpation Prophylaxis NS @100cc/hr SCDs C/I due to pedal edema Pepcid 20mg PO Heart healthy diet <Dada Francis - Last Filed: 10/10/16 15:03> Objective - Vital Signs/Intake and Output Vital Signs (last 24 hours): Temp Pulse Resp BP Pulse Ox 98.5 F 78 20 137/79 99 09/07/16 16:00 09/07/16 16:00 09/07/16 16:00 09/07/16 16:00 09/07/16 16:00 - Labs Labs: 09/07/16 06:07 09/07/16 06:07 PT 12.2 SECONDS (9.7-12.2) 09/04/16 19:56 INR 1.1 09/04/16 19:56 APTT 30 SECONDS (21-34) 09/04/16 19:56 Attending/Attestation - Attestation I have personally seen and examined this patient.: Yes I have fully participated in the care of the patient.: Yes I have reviewed all pertinent clinical information, including history, physical exam and plan: Yes Notes (Text): Chest pain Stress test to be done by Dr. Stovall on 09/07/16 Type two diabetes mellitus Newly diagnosed Metformin 500 mg BID to be started
[2016-09-07 06:20] LABS: BASO % 0.5 % (0.0-2.0); EOS # 0.3 K/uL (0.0-0.7); EOS % 5.3 % (0.0-4.0); HEMATOCRIT 40.6 % (35.0-51.0); LYMPH # 1.5 K/uL (1.0-4.3); LYMPH % 26.4 % (20.0-40.0); MEAN CELL VOLUME 87.4 fL (80.0-94.0); MEAN CORPUSCULAR HEMOGLOBIN 30.1 pg (27.0-31.0); MEAN CORPUSCULAR HGB CONC 34.4 g/dL (33.0-37.0); MEAN PLATELET VOLUME 9.3 fL (7.2-11.7); MONO # 0.5 K/uL (0.0-0.8); MONO % 8.2 % (0.0-10.0); WHITE BLOOD COUNT 5.8 K/uL (4.8-10.8)
[2016-09-07] MEDS: Sodium Chloride 0.9% 1,000 ML IV SCH (06:25)
[2016-09-07 06:32] LABS: ALB/GLOB RATIO 1.4 (1.0-2.1); ALKALINE PHOSPHATASE 63 U/L (38-126); ALT/SGPT 37 U/L (21-72); AST/SGOT 23 U/L (17-59); BILIRUBIN,TOTAL 0.6 mg/dL (0.2-1.3); BLOOD UREA NITROGEN 16 mg/dL (9-20); CALCIUM 8.7 mg/dl (8.6-10.4); CARBON DIOXIDE 23 mmol/L (22-30); CHLORIDE 101 mmol/L (98-107); GFR AFRICAN-AMERICAN > 60; GLUCOSE,RANDOM 116 mg/dL (75-110); PHOSPHOROUS 3.2 mg/dL (2.5-4.5); POTASSIUM 3.5 mmol/L (3.6-5.2); SODIUM 139 mmol/L (132-148); TOTAL PROTEIN 6.4 g/dL (6.3-8.3)
[2016-09-07] MEDS: (Novolin R) Insulin Human Regular 100 units/ml vial SC SCH ×3 (08:14→17:37)
--- NOTE | 2016-09-07 10:09 | CP.PCM.PN ---
Subjective - Date & Time of Evaluation Date of Evaluation: 09/07/16 Time of Evaluation: 10:08 - Subjective Subjective: Offered no complaints Objective - Vital Signs/Intake and Output Vital Signs (last 24 hours): Temp Pulse Resp BP Pulse Ox 98.2 F 66 20 132/82 98 09/07/16 07:35 09/07/16 07:35 09/07/16 07:35 09/07/16 07:35 09/07/16 07:35 Intake and Output: 09/07/16 09/07/16 06:59 18:59 Intake Total 1999 Balance 1999 - Medications Medications: Current Medications Amlodipine Besylate (Norvasc) 10 mg PO DAILY [facility] Last Admin: 09/06/16 10:42 Dose: 10 mg Aspirin (Ecotrin) 81 mg PO DAILY [facility] Last Admin: 09/06/16 10:42 Dose: 81 mg Enoxaparin Sodium (Lovenox) 40 mg SC DAILY [facility] Last Admin: 09/06/16 10:42 Dose: 40 mg Famotidine (Pepcid) 20 mg PO BID [facility] Last Admin: 09/06/16 17:09 Dose: 20 mg Hydralazine HCl (Apresoline) 25 mg PO QID [facility] Last Admin: 09/06/16 22:22 Dose: 25 mg Hydrochlorothiazide (Microzide) 12.5 mg PO DAILY [facility] Last Admin: 09/06/16 10:42 Dose: 12.5 mg Sodium Chloride (Sodium Chloride 0.9%) 1,000 mls @ 100 mls/hr IV .Q10H [facility] Last Admin: 09/07/16 06:25 Dose: 100 mls/hr Insulin Human Regular (Novolin R) 0 unit SC [facility] PRN Reason: Protocol Last Admin: 09/07/16 08:14 Dose: Not Given Losartan Potassium (Cozaar) 100 mg PO DAILY [facility] Last Admin: 09/05/16 10:32 Dose: 100 mg Metformin HCl (Glucophage) 500 mg PO BIDCC [facility] Last Admin: 09/07/16 08:15 Dose: Not Given Rosuvastatin Calcium (Crestor) 10 mg PO HS [facility] Last Admin: 09/06/16 22:22 Dose: 10 mg - Labs Labs: 09/07/16 06:07 09/07/16 06:07 PT 12.2 SECONDS (9.7-12.2) 09/04/16 19:56 INR 1.1 09/04/16 19:56 APTT 30 SECONDS (21-34) 09/04/16 19:56 - Constitutional Appears: Well - Head Exam Head Exam: NORMAL INSPECTION - Eye Exam Eye Exam: Normal appearance - ENT Exam ENT Exam: Normal Exam - Neck Exam Neck Exam: Normal Inspection - Cardiovascular Exam Cardiovascular Exam: REGULAR RHYTHM, +S1, +S2. absent: Murmur - Extremities Exam Extremities Exam: Normal Inspection - Neurological Exam Neurological Exam: Alert, Oriented x3 - Psychiatric Exam Psychiatric exam: Normal Mood Assessment and Plan - Assessment and Plan (Free Text) Assessment: Clinically status quo Further work up contingent on stress test results Uptitrate ACEI given LV dilatation Plan: As outlined
[2016-09-07] MEDS: Enoxaparin 40 mg Syringe SC SCH ×2 (10:57→11:32)
[2016-09-07 11:46] VITALS: O2SAT 99
[2016-09-07] MEDS ORDERED: Potassium Chloride 20 mEq ER Tab PO ONE (14:05)
[2016-09-07 17:08] VITALS: BP 137/79; PULSE 78; RESP 20; TEMP 98.5
--- NOTE | 2016-09-07 17:18 | CP.PCM.DIS ---
<Cara Hernandez - Last Filed: 09/07/16 17:14> Provider - Provider Date of Admission: 09/04/16 21:00 Attending physician: Savage Cooper MD Consults: Dr. Stovall (cardiology) Time Spent in preparation of Discharge (in minutes): 45 Diagnosis - Discharge Diagnosis (1) Hypertension Status: Acute (2) Diabetes Status: Acute (3) Chest pain Status: Resolved Hospital Course - Lab Results Lab Results: Most Recent Lab Values WBC 5.8 K/uL (4.8-10.8) 09/07/16 06:07 RBC 4.65 Mil/uL (4.40-5.90) 09/07/16 06:07 Hgb 14.0 g/dL (12.0-18.0) 09/07/16 06:07 Hct 40.6 % (35.0-51.0) 09/07/16 06:07 MCV 87.4 fL (80.0-94.0) 09/07/16 06:07 MCH 30.1 pg (27.0-31.0) 09/07/16 06:07 MCHC 34.4 g/dL (33.0-37.0) 09/07/16 06:07 RDW 14.0 % (11.5-14.5) 09/07/16 06:07 Plt Count 177 K/uL (130-400) 09/07/16 06:07 MPV 9.3 fL (7.2-11.7) 09/07/16 06:07 Neut % (Auto) 59.6 % (50.0-75.0) 09/07/16 06:07 Lymph % (Auto) 26.4 % (20.0-40.0) 09/07/16 06:07 [place] % (Auto) 8.2 % (0.0-10.0) 09/07/16 06:07 Eos % (Auto) 5.3 % (0.0-4.0) H 09/07/16 06:07 Baso % (Auto) 0.5 % (0.0-2.0) 09/07/16 06:07 Neut # 3.5 K/uL (1.8-7.0) 09/07/16 06:07 Lymph # 1.5 K/uL (1.0-4.3) 09/07/16 06:07 [place] # 0.5 K/uL (0.0-0.8) 09/07/16 06:07 Eos # 0.3 K/uL (0.0-0.7) 09/07/16 06:07 Baso # 0.0 K/uL (0.0-0.2) 09/07/16 06:07 PT 12.2 SECONDS (9.7-12.2) 09/04/16 19:56 INR 1.1 09/04/16 19:56 APTT 30 SECONDS (21-34) 09/04/16 19:56 pO2 20 mm/Hg (30-55) L 09/05/16 08:18 VBG pH 7.35 (7.32-7.43) 09/05/16 08:18 VBG pCO2 50 mmHg (40-60) 09/05/16 08:18 VBG HCO3 24.0 mmol/L 09/05/16 08:18 VBG Total CO2 29.1 mmol/L (22-28) H 09/05/16 08:18 VBG O2 Sat (Calc) 34.5 % (40-65) L 09/05/16 08:18 VBG Base Excess 1.2 mmol/L (0.0-2.0) 09/05/16 08:18 VBG Potassium 3.8 mmol/L (3.6-5.2) 09/05/16 08:18 Sodium 140.0 mmol/l (132-148) 09/05/16 08:18 Chloride 107.0 mmol/L (98-107) 09/05/16 08:18 Glucose 156 mg/dl (75-110) H 09/05/16 08:18 Lactate 1.6 mmol/L (0.7-2.1) 09/05/16 08:18 Sodium 139 mmol/L (132-148) 09/07/16 06:07 Potassium 3.5 mmol/L (3.6-5.2) L 09/07/16 06:07 Chloride 101 mmol/L (98-107) 09/07/16 06:07 Carbon Dioxide 23 mmol/L (22-30) 09/07/16 06:07 Anion Gap 19 (10-20) 09/07/16 06:07 BUN 16 mg/dL (9-20) 09/07/16 06:07 Creatinine 1.0 MG/DL (0.8-1.5) 09/07/16 06:07 Est GFR ( Amer) > 60 09/07/16 06:07 Est GFR (Non-Af Amer) > 60 09/07/16 06:07 POC Glucose (mg/dL) 164 mg/dL (65-110) H 09/07/16 11:37 Random Glucose 116 mg/dL (75-110) H 09/07/16 06:07 Hemoglobin A1c 7.9 % (4.2-6.5) H 09/05/16 08:33 Serum Osmolality 301 mosm/kg (272-300) H 09/05/16 08:33 Calcium 8.7 mg/dl (8.6-10.4) 09/07/16 06:07 Phosphorus 3.2 mg/dL (2.5-4.5) 09/07/16 06:07 Magnesium 2.0 mg/dL (1.6-2.3) 09/07/16 06:07 Total Bilirubin 0.6 mg/dL (0.2-1.3) 09/07/16 06:07 AST 23 U/L (17-59) 09/07/16 06:07 ALT 37 U/L (21-72) 09/07/16 06:07 Alkaline Phosphatase 63 U/L (38-126) 09/07/16 06:07 Total Creatine Kinase 116 U/L (55-170) 09/05/16 12:04 CK-MB (Mass) 0.48 ng/mL (0.0-3.38) 09/05/16 12:04 Troponin I < 0.0120 ng/mL (0.00-0.120) 09/04/16 19:56 Troponin I, Quant < 0.0120 ng/mL (0.00-0.120) 09/05/16 12:04 NT-Pro-B Natriuret Pep 197 pg/mL (0-900) 09/04/16 19:56 Total Protein 6.4 g/dL (6.3-8.3) 09/07/16 06:07 Albumin 3.8 g/dL (3.5-5.0) 09/07/16 06:07 Globulin 2.7 gm/dL (2.2-3.9) 09/07/16 06:07 Albumin/Globulin Ratio 1.4 (1.0-2.1) 09/07/16 06:07 Triglycerides 164 mg/dL (0-149) H 09/05/16 06:52 Cholesterol 116 mg/dL (0-199) 09/05/16 06:52 LDL Cholesterol Direct 62 mg/dL (0-129) 09/05/16 06:52 HDL Cholesterol 25 mg/dL (30-70) L 09/05/16 06:52 Lipase 96 U/L (23-300) 09/04/16 19:56 Free T4 0.99 ng/dL (0.78-2.19) 09/05/16 08:33 TSH 3rd Generation 2.98 mIU/L (0.46-4.68) 09/05/16 06:52 Venous Blood Potassium 3.8 mmol/L (3.6-5.2) 09/05/16 08:18 Urine Color Yellow (YELLOW) 09/05/16 12:04 Urine Clarity Clear (Clear) 09/05/16 12:04 Urine pH 6.0 (5.0-8.0) 09/05/16 12:04 Ur Specific [place] 1.024 (1.003-1.030) 09/05/16 12:04 Urine Protein Negative mg/dL (NEGATIVE) 09/05/16 12:04 Urine Glucose (UA) 2+ mg/dL (Normal) H 09/05/16 12:04 Urine Ketones Negative mg/dL (NEGATIVE) 09/05/16 12:04 Urine Blood Negative (NEGATIVE) 09/05/16 12:04 Urine Nitrate Negative (NEGATIVE) 09/05/16 12:04 Urine Bilirubin Negative (NEGATIVE) 09/05/16 12:04 Urine Urobilinogen Normal mg/dL (0.2-1.0) 09/05/16 12:04 Ur Leukocyte Esterase Neg Nehemias/uL (Negative) 09/05/16 12:04 Urine WBC (Auto) < 1 /hpf (0-5) 09/05/16 12:04 Urine RBC (Auto) < 1 /hpf (0-3) 09/05/16 12:04 Ur Squamous Epith Cells 1 /hpf (0-5) 09/05/16 12:04 Hyaline Casts >20 /lpf (0-2) H 09/04/16 20:05 Urine Eosinophils Negative (NEGATIVE) 09/04/16 03:02 - Hospital Course Hospital Course: CC: "I had pain and pressure in my chest, and I have back pain that's different from ever before." HPI: 60 yo male with PMHx HTN, hyperlipidemia - presents to the ED c/o chest pain and L sided chest pressure since 4pm. The chest pain began while sitting at his desk in [employer] and describes it as throbbing, rated 4/10. He admits the chest pain was associated with a feeling of pressure in the left chest. He denies radiation of chest pain, and nothing made it better or worse. Patient states that chest pain lasted for approximately 30 minutes, and resolved upon arrival to ED (prior administration to [facility]). He admits to swelling of his lower extremities nightly for several months and SOB after going up 3 flights of stairs for the same time period. He denies orthopnea. Patient denies fever , chills, change in vision, dizziness, headache, SOB, abdominal pain, nausea, vomiting, LE pain, or any additional acute complaints. Patient also complains of intermittent mid left back pain that has been present for several years, exacerbated by increased activity. Most recently, he walked over 30 blocks, and his back pain became worse at 8/10. Currently his back pain is 6/10. Extra strength Tylenol has helped moderately. Patient admitted on 09/04/16 for chest pain. Patient admitted for chest pain. [employer] Dr. Stovall was consulted. ECG found sinus rhythm and non specific changes. Troponins were negative [address] angiogram [09/05] of chest was found to be negative for PE and aortic dissection. Echo [09/05] found LVEF 50-55%, LV moderately dilated, mild concentric left ventricle hypertrophy. CXR [09/05] found mild venous congestion and mild patchy bibasilar airspace opacities. Right ventricle is normal size and transmitral doppler flow pattern is normal for age. TSH, free T4 [09/05]was within normal limits. Fasting lipid panel [09/05] found triglycerides 164H, HDL 25L, and cholesterol 116, LDL 62. Myocardial perfusion scan nucleotide [09/07] was performed with results pending, Dr. Stovall contacted stress test and cleared patient for discharge. Patient to follow up outpatient. Patient had acute kidney injury with BUN/Cr found to be 22/1.3 on admission. Urine analysis on [09/05] found over 20 hyaline casts. Creatinine improved to 1 [09/07]. Patient was newly diagnosed with type two diabetes, A1c was 7.9 [09/05]. Patient monitored, educated, treated. Patient treated and monitored for his chronic hypertension. Prophylactic measures were administered. Discharge Exam - Head Exam Head Exam: NORMAL INSPECTION - Eye Exam Eye Exam: EOMI, Normal appearance, PERRL - ENT Exam ENT Exam: Mucous Membranes Moist - Neck Exam Neck exam: Full Rom - Respiratory Exam Respiratory Exam: Clear to PA & Lateral, NORMAL BREATHING PATTERN - Cardiovascular Exam Cardiovascular Exam: REGULAR RHYTHM, RRR - GI/Abdominal Exam GI & Abdominal Exam: Normal Bowel Sounds, Unremarkable - Extremities Exam Extremities exam: full ROM - Back Exam Back exam: NORMAL INSPECTION - Neurological Exam Neurological exam: Alert, Oriented x3 - Psychiatric Exam Psychiatric exam: Normal Affect, Normal Mood - Skin Skin Exam: Intact, Normal Color, Warm Discharge Plan - Follow Up Plan Condition: FAIR Disposition: HOME/ ROUTINE Instructions: Aspirin (By mouth), Hydralazine (By mouth), Amlodipine (By mouth) , Metformin (By mouth), Losartan/Hydrochlorothiazide (By mouth), Rosuvastatin ( By mouth), Chest Pain (DC), Acute Kidney Injury (DC), Heart Healthy Diet (DC), Diabetic Foot Care (DC), Diabetes Mellitus Type 2 in Adults (DC), Basic Carbohydrate Counting (DC), Meal Planning with the Plate Method (DC), Meal Planning with Diabetes Exchanges (DC) Additional Instructions: Patient stable for discharge as per Dr. Francis. Patient to follow up with Dr. Stovall within one week (please call [phone]). Patient to take the following medications: Norvasc 10 mg po daily Aspirin 81 mg po daily Hydralazine 25mg po 4 times a day Losartan -HCTZ 100-12.5 mg 1 tab daily metformin 500 mg po twice a day crestor 10 mg po at night Please return to emergency room immediately if symptoms return. Patient explained instructions who understands and agrees. Referrals: Zonia Stovall MD [Staff Provider] - <Dada Francsi - Last Filed: 10/10/16 15:08> Provider - Provider Date of Admission: 09/04/16 21:00 Attending physician: Savage Cooper MD Hospital Course - Lab Results Lab Results: Most Recent Lab Values WBC 5.8 K/uL (4.8-10.8) 09/07/16 06:07 RBC 4.65 Mil/uL (4.40-5.90) 09/07/16 06:07 Hgb 14.0 g/dL (12.0-18.0) 09/07/16 06:07 Hct 40.6 % (35.0-51.0) 09/07/16 06:07 MCV 87.4 fL (80.0-94.0) 09/07/16 06:07 MCH 30.1 pg (27.0-31.0) 09/07/16 06:07 MCHC 34.4 g/dL (33.0-37.0) 09/07/16 06:07 RDW 14.0 % (11.5-14.5) 09/07/16 06:07 Plt Count 177 K/uL (130-400) 09/07/16 06:07 MPV 9.3 fL (7.2-11.7) 09/07/16 06:07 Neut % (Auto) 59.6 % (50.0-75.0) 09/07/16 06:07 Lymph % (Auto) 26.4 % (20.0-40.0) 09/07/16 06:07 [place] % (Auto) 8.2 % (0.0-10.0) 09/07/16 06:07 Eos % (Auto) 5.3 % (0.0-4.0) H 09/07/16 06:07 Baso % (Auto) 0.5 % (0.0-2.0) 09/07/16 06:07 Neut # 3.5 K/uL (1.8-7.0) 09/07/16 06:07 Lymph # 1.5 K/uL (1.0-4.3) 09/07/16 06:07 [place] # 0.5 K/uL (0.0-0.8) 09/07/16 06:07 Eos # 0.3 K/uL (0.0-0.7) 09/07/16 06:07 Baso # 0.0 K/uL (0.0-0.2) 09/07/16 06:07 PT 12.2 SECONDS (9.7-12.2) 09/04/16 19:56 INR 1.1 09/04/16 19:56 APTT 30 SECONDS (21-34) 09/04/16 19:56 pO2 20 mm/Hg (30-55) L 09/05/16 08:18 VBG pH 7.35 (7.32-7.43) 09/05/16 08:18 VBG pCO2 50 mmHg (40-60) 09/05/16 08:18 VBG HCO3 24.0 mmol/L 09/05/16 08:18 VBG Total CO2 29.1 mmol/L (22-28) H 09/05/16 08:18 VBG O2 Sat (Calc) 34.5 % (40-65) L 09/05/16 08:18 VBG Base Excess 1.2 mmol/L (0.0-2.0) 09/05/16 08:18 VBG Potassium 3.8 mmol/L (3.6-5.2) 09/05/16 08:18 Sodium 140.0 mmol/l (132-148) 09/05/16 08:18 Chloride 107.0 mmol/L (98-107) 09/05/16 08:18 Glucose 156 mg/dl (75-110) H 09/05/16 08:18 Lactate 1.6 mmol/L (0.7-2.1) 09/05/16 08:18 Sodium 139 mmol/L (132-148) 09/07/16 06:07 Potassium 3.5 mmol/L (3.6-5.2) L 09/07/16 06:07 Chloride 101 mmol/L (98-107) 09/07/16 06:07 Carbon Dioxide 23 mmol/L (22-30) 09/07/16 06:07 Anion Gap 19 (10-20) 09/07/16 06:07 BUN 16 mg/dL (9-20) 09/07/16 06:07 Creatinine 1.0 MG/DL (0.8-1.5) 09/07/16 06:07 Est GFR ( Amer) > 60 09/07/16 06:07 Est GFR (Non-Af Amer) > 60 09/07/16 06:07 POC Glucose (mg/dL) 164 mg/dL (65-110) H 09/07/16 11:37 Random Glucose 116 mg/dL (75-110) H 09/07/16 06:07 Hemoglobin A1c 7.9 % (4.2-6.5) H 09/05/16 08:33 Serum Osmolality 301 mosm/kg (272-300) H 09/05/16 08:33 Calcium 8.7 mg/dl (8.6-10.4) 09/07/16 06:07 Phosphorus 3.2 mg/dL (2.5-4.5) 09/07/16 06:07 Magnesium 2.0 mg/dL (1.6-2.3) 09/07/16 06:07 Total Bilirubin 0.6 mg/dL (0.2-1.3) 09/07/16 06:07 AST 23 U/L (17-59) 09/07/16 06:07 ALT 37 U/L (21-72) 09/07/16 06:07 Alkaline Phosphatase 63 U/L (38-126) 09/07/16 06:07 Total Creatine Kinase 116 U/L (55-170) 09/05/16 12:04 CK-MB (Mass) 0.48 ng/mL (0.0-3.38) 09/05/16 12:04 Troponin I < 0.0120 ng/mL (0.00-0.120) 09/04/16 19:56 Troponin I, Quant < 0.0120 ng/mL (0.00-0.120) 09/05/16 12:04 NT-Pro-B Natriuret Pep 197 pg/mL (0-900) 09/04/16 19:56 Total Protein 6.4 g/dL (6.3-8.3) 09/07/16 06:07 Albumin 3.8 g/dL (3.5-5.0) 09/07/16 06:07 Globulin 2.7 gm/dL (2.2-3.9) 09/07/16 06:07 Albumin/Globulin Ratio 1.4 (1.0-2.1) 09/07/16 06:07 Triglycerides 164 mg/dL (0-149) H 09/05/16 06:52 Cholesterol 116 mg/dL (0-199) 09/05/16 06:52 LDL Cholesterol Direct 62 mg/dL (0-129) 09/05/16 06:52 HDL Cholesterol 25 mg/dL (30-70) L 09/05/16 06:52 Lipase 96 U/L (23-300) 09/04/16 19:56 Free T4 0.99 ng/dL (0.78-2.19) 09/05/16 08:33 TSH 3rd Generation 2.98 mIU/L (0.46-4.68) 09/05/16 06:52 Venous Blood Potassium 3.8 mmol/L (3.6-5.2) 09/05/16 08:18 Urine Color Yellow (YELLOW) 09/05/16 12:04 Urine Clarity Clear (Clear) 09/05/16 12:04 Urine pH 6.0 (5.0-8.0) 09/05/16 12:04 Ur Specific [place] 1.024 (1.003-1.030) 09/05/16 12:04 Urine Protein Negative mg/dL (NEGATIVE) 09/05/16 12:04 Urine Glucose (UA) 2+ mg/dL (Normal) H 09/05/16 12:04 Urine Ketones Negative mg/dL (NEGATIVE) 09/05/16 12:04 Urine Blood Negative (NEGATIVE) 09/05/16 12:04 Urine Nitrate Negative (NEGATIVE) 09/05/16 12:04 Urine Bilirubin Negative (NEGATIVE) 09/05/16 12:04 Urine Urobilinogen Normal mg/dL (0.2-1.0) 09/05/16 12:04 Ur Leukocyte Esterase Neg Nehemias/uL (Negative) 09/05/16 12:04 Urine WBC (Auto) < 1 /hpf (0-5) 09/05/16 12:04 Urine RBC (Auto) < 1 /hpf (0-3) 09/05/16 12:04 Ur Squamous Epith Cells 1 /hpf (0-5) 09/05/16 12:04 Hyaline Casts >20 /lpf (0-2) H 09/04/16 20:05 Urine Eosinophils Negative (NEGATIVE) 09/04/16 03:02 Attending/Attestation - Attestation I have personally seen and examined this patient.: Yes I have fully participated in the care of the patient.: Yes I have reviewed all pertinent clinical information, including history, physical exam and plan: Yes Notes (Text): Patient admitted for chest pain. [employer] Dr. Stovall was consulted. ECG found sinus rhythm and non specific changes. Troponins were negative [address] angiogram [09/05] of chest was found to be negative for PE and aortic dissection. Echo [09/05] found LVEF 50-55%, LV moderately dilated, mild concentric left ventricle hypertrophy. CXR [09/05] found mild venous congestion and mild patchy bibasilar airspace opacities. Right ventricle is normal size and transmitral doppler flow pattern is normal for age. TSH, free T4 [09/05]was within normal limits. Fasting lipid panel [09/05] found triglycerides 164H, HDL 25L, and cholesterol 116, LDL 62. Myocardial perfusion scan nucleotide [09/07] was performed with results pending, Dr. Stovall contacted stress test and cleared patient for discharge. Patient to follow up outpatient.
[2016-09-08] MEDS ORDERED: Potassium Chloride 20 mEq ER Tab PO SCH (10:00)
--- NOTE | 2016-09-08 13:17 | CARD ---
APPROVED REPORT EKG Measurement Heart [id number] <Conclusion> Normal sinus rhythm Normal ECG
--- NOTE | 2016-09-08 13:19 | CARD ---
APPROVED REPORT EKG Measurement Heart [id number] [id number] <Conclusion> Sinus bradycardia Minimal voltage criteria for LVH, may be normal variant Junctional ST depression, probably normal Borderline ECG
== END 2016-09-07 18:35 | disposition home or self-care (01) ==
LOC: C.ER 17:10 → C.6T 21:00
PROVIDERS: ADMIT Internal Medicine; ATTEND Internal Medicine
DX: N17.9 Acute kidney failure, unspecified (principal); M54.5 Low back pain; R07.9 Chest pain, unspecified; E78.5 Hyperlipidemia, unspecified; E11.9 Type 2 diabetes mellitus without complications; E66.9 Obesity, unspecified; Z68.37 Body mass index [BMI] 37.0-37.9, adult
CPT/HCPCS: 36415; 71010; 71275; 78452; 80053; 80061; 81001; 82803; 82948; 83036; 83690; 83735; 83880; 83930; 84100; 84439; 84443; 84484; 85025; 85610; 85730; 87205; 90732; 93005; 93017; 93306; 99285; A9502; G0009; G0378; J1650; J7040; J7042; Q9967

== ENCOUNTER 2016-10-02 21:23 | Observation (INO) | payer BC ==
[2016-10-02 21:24] VITALS: BMI 36.3
--- NOTE | 2016-10-02 22:41 | C.PDOC ---
History Of Present Illness 60 year old male who presents to the ER for a complaint of sudden onset of palpitations that began tonight. Sx of slight SOB, denies any chest pain. Chief Complaint (Nursing): Shortness Of Breath History Per: Patient History/Exam Limitations: no limitations Onset/Duration Of Symptoms: Hrs, Sudden Onset Current Symptoms Are (Timing): Still Present Initiating Event: Other (Not known) Current Respiratory Medications: None Associated Symptoms: denies: Fever, Chills, Chest Pain Recent travel outside of the [place]: No Past Medical History Reviewed: Historical Data, Nursing Documentation, Vital Signs Vital Signs: Last Vital Signs Temp 98 F 10/03/16 00:36 Pulse 84 10/03/16 00:36 Resp 20 10/03/16 00:36 BP 118/77 10/03/16 00:36 Pulse Ox 98 10/03/16 01:31 - Medical History PMH: HTN Surgical History: Appendectomy, Tonsillectomy Family History: States: Unknown Family Hx - Social History Hx Tobacco Use: No Hx Alcohol Use: No Hx Substance Use: No - Immunization History Hx Tetanus Toxoid Vaccination: No Hx Influenza Vaccination: No Hx Pneumococcal Vaccination: No Review Of Systems Constitutional: Negative for: Fever, Chills Cardiovascular: Positive for: Palpitations. Negative for: Chest Pain Respiratory: Negative for: Shortness of Breath Gastrointestinal: Negative for: Nausea, Vomiting Neurological: Negative for: Weakness, Numbness Physical Exam - Physical Exam Appears: Non-toxic Skin: Warm, Dry Head: Atraumatic, Normacephalic Oral Mucosa: Moist Neck: Normal, Supple Chest: Symmetrical, No Tenderness Cardiovascular: Rhythm Regular (Tachycardic), No Murmur Respiratory: Normal Breath Sounds, No Rales, No Rhonchi, No Wheezing Gastrointestinal/Abdominal: Soft, No Tenderness Extremity: Normal ROM, Tenderness, No Pedal Edema Neurological/Psych: Oriented x3, Normal Speech, Normal Cognition ED Course And Treatment - Laboratory Results Result Diagrams: 10/02/16 22:47 10/02/16 22:47 ECG: Interpreted By Me, Viewed By Me ECG Rhythm: Atrial Flutter ECG Interpretation: Abnormal Interpretation Of ECG: atrial flutter 2:[address]-t changes. Rate From EC O2 Sat by Pulse Oximetry: 98 (Room air) Pulse Ox Interpretation: Normal - CT Scan/US CTA Other Rad Studies (CT/US): Read By Radiologist, Radiology Report Reviewed CT/US Interpretation: EXAM: CT Angiography Chest With Intravenous Contrast. EXAM DATE/TIME: 10/02/2016 11:36 PM. CLINICAL HISTORY: 60 years old, male; Pain; Chest pain; Patient HX: 7-17; Additional info: Irregular heart beat,. sudden onset. TECHNIQUE: Axial computed tomographic angiography images of the chest with intravenous contrast using. pulmonary embolism protocol. All CT scans at this facility use one or more dose reduction. techniques, viz.: automated exposure control; ma/kV adjustment per patient size (including targeted. exams where dose is matched to indication; i.e. head); or iterative reconstruction technique. MIP reconstructed images were created and reviewed. Coronal and sagittal reformatted images were created and reviewed. CONTRAST: 100 mL of [id number] administered intravenously. COMPARISON: CT - ANGIOGRAPHY CHEST 09/04/2016 10:47:15 PM. FINDINGS: Artifacts: Motion artifact degrades image quality. Heart, aorta and Pulmonary arteries: The heart is mildly enlarged.There is fluid in the pericardial. recesses.There is no aneurysm or dissection.There are vascular calcifications. There are no centralpulmonary emboli. Patient motion limits evaluation of peripheral vessels. There are no large. peripheral pulmonary emboli. Lungs and pleural spaces: Trachea and main bronchi are patent. There is no focal consolidation. There is dependent atelectasis. There are no effusions. Mediastinum: The esophagus is unremarkable. There are no pathologically enlarged mediastinal or. hilar nodes. Thyroid: Thyroid is not optimally demonstrated. Bones/joints: There are degenerative changes in the osseus structures. Soft tissues: unremarkable. Upper abdomen: There are no acute abnormalities in the visualized portion of the abdomen. IMPRESSION: Mild cardiomegaly and atherosclerotic disease; slightly limited by patient motion, no. aortic aneurysm or pulmonary embolus; no focal pneumonia Progress Note: CTA, EKG, and CXR ordered. Cardizem administered. Patient's EKG has reverted to sinus rhythm after 10mg of cardizem. D-dimer results were found to be negative, will do PE study. Reassessment Condition: Improved Disposition Discussed With : Savage Cooper Doctor Will See Patient In The: Hospital Counseled Patient/Family Regarding: Diagnosis - Disposition Disposition: HOSPITALIZED Disposition Time: 01:36 Condition: STABLE Forms: [facility] (Nepali) - POA Present On Arrival: None - Clinical Impression Clinical Impression: Cardiac arrhythmia, Atrial dysrhythmia - Scribe Statement The provider has reviewed the documentation as recorded by the Scribjill Galindo All medical record entries made by the Scribe were at my direction and personally dictated by me. I have reviewed the chart and agree that the record accurately reflects my personal performance of the history, physical exam, medical decision making, and the department course for this patient. I have also personally directed, reviewed, and agree with the discharge instructions and disposition.
[2016-10-02 22:50] LABS: BASO # 0.1 K/uL (0.0-0.2); BASO % 1.1 % (0.0-2.0); EOS # 0.2 K/uL (0.0-0.7); EOS % 3.1 % (0.0-4.0); HEMATOCRIT 42.4 % (35.0-51.0); LYMPH # 2.1 K/uL (1.0-4.3); LYMPH % 29.7 % (20.0-40.0); MEAN CELL VOLUME 88.2 fL (80.0-94.0); MEAN CORPUSCULAR HEMOGLOBIN 28.9 pg (27.0-31.0); MEAN CORPUSCULAR HGB CONC 32.7 g/dL (33.0-37.0); MEAN PLATELET VOLUME 9.5 fL (7.2-11.7); MONO # 0.6 K/uL (0.0-0.8); NRBC % 0.1 % (0.0-2.0); RED CELL DISTRIBUTION WIDTH 14.5 % (11.5-14.5)
[2016-10-02 22:58] LABS: CHLORIDE 103 mmol/L (98-107); POTASSIUM 3.8 mmol/L (3.6-5.2); SODIUM 138 mmol/L (132-148)
[2016-10-02 23:01] LABS: ALB/GLOB RATIO 1.2 (1.0-2.1); ALKALINE PHOSPHATASE 53 U/L (38-126); ALT/SGPT 39 U/L (21-72); AST/SGOT 26 U/L (17-59); BILIRUBIN,TOTAL 0.8 mg/dL (0.2-1.3); BLOOD UREA NITROGEN 23 mg/dL (9-20); CARBON DIOXIDE 20 mmol/L (22-30); GFR AFRICAN-AMERICAN 58; GLUCOSE,RANDOM 111 mg/dL (75-110); TOTAL PROTEIN 7.7 g/dL (6.3-8.3)
[2016-10-02 23:02] LABS: CALCIUM 9.7 mg/dl (8.6-10.4)
[2016-10-03] MEDS ORDERED: Iodixanol 320 MG/ML 100 ML BOTTLE IV ONE (00:28)
--- NOTE | 2016-10-03 01:27 | CT ---
EXAM: CT Angiography Chest With Intravenous Contrast EXAM DATE/TIME: 10/02/2016 11:36 PM CLINICAL HISTORY: 60 years old, male; Pain; Chest pain; Patient HX: 7-24-17; Additional info: Irregular heart beat, sudden onset TECHNIQUE: Axial computed tomographic angiography images of the chest with intravenous contrast using pulmonary embolism protocol. All CT scans at this facility use one or more dose reduction techniques, viz.: automated exposure control; ma/kV adjustment per patient size (including targeted exams where dose is matched to indication; i.e. head); or iterative reconstruction technique. MIP reconstructed images were created and reviewed. Coronal and sagittal reformatted images were created and reviewed. CONTRAST: 100 mL of [id number] administered intravenously. COMPARISON: CT - ANGIOGRAPHY CHEST 09/04/2016 10:47:15 PM FINDINGS: Artifacts: Motion artifact degrades image quality. Heart, aorta and Pulmonary arteries: The heart is mildly enlarged.There is fluid in the pericardial recesses.There is no aneurysm or dissection.There are vascular calcifications. There are no central pulmonary emboli. Patient motion limits evaluation of peripheral vessels. There are no large peripheral pulmonary emboli. Lungs and pleural spaces: Trachea and main bronchi are patent. There is no focal consolidation. There is dependent atelectasis. There are no effusions. Mediastinum: The esophagus is unremarkable. There are no pathologically enlarged mediastinal or hilar nodes. Thyroid: Thyroid is not optimally demonstrated. Bones/joints: There are degenerative changes in the osseus structures. Soft tissues: unremarkable Upper abdomen: There are no acute abnormalities in the visualized portion of the abdomen. IMPRESSION: Mild cardiomegaly and atherosclerotic disease; slightly limited by patient motion, no aortic aneurysm or pulmonary embolus; no focal pneumonia Additional findings as described above.
[2016-10-03] MEDS ORDERED: Enoxaparin 40 mg Syringe ONE ×2 (03:23→10:13)
[2016-10-03] MEDS ORDERED: Enoxaparin 80 mg Syringe ONE ×2 (03:24→10:14)
[2016-10-03] MEDS: Enoxaparin 120 mg Syringe SC SCH ×3 (03:26→21:32)
--- NOTE | 2016-10-03 04:02 | CP.PCM.HP ---
<Jonny Yessi BROOKS - Last Filed: 10/03/16 04:23> History of Present Illness - History of Present Illness History of Present Illness: CC: "I had trouble breathing" Patient is a 60 year old male with PMHx HTN, HLD, and diabetes who presents to the ED with complaint of shortness of breath. Patient states he was walking up the 3 flights of stairs to his apartment yesterday evening around 7pm when he became short of breath. Patient states this has never happened to him before. Patient states when he got in his apartment he felt short of breath again later. Patient states although his symptoms resolved he was concerned because this was a first time occurrence so he came to the ED. Patient states he took a bus to the ED and felt fine upon arrival. Patient denies chest pain of palpitations. Patient denies difficulty breathing. Patient had EKG in the ER which showed atrial flutter. Patient was given cardizem and converted to sinus rhythm. Patient states he felt no different prior to or after receiving cardizem. Patient states he has been compliant with all medications prescribed at last admission and has followed up with his PMD since discharge from the hospital. Patient is due to see his integrated circuit design engineer, Dr. Wilman yang. 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 absent: Chest Pain, Chest Pain at Rest - Respiratory Respiratory: absent: Cough - Gastrointestinal Gastrointestinal: Dyspepsia. absent: Nausea, Vomiting - Genitourinary Genitourinary: absent: Difficulty Urinating, Dysuria - Musculoskeletal Musculoskeletal: absent: Back Pain - Integumentary Integumentary: absent: Rash - Neurological Neurological: absent: Dizziness, Weakness - Endocrine Endocrine: absent: Polydipsia, Polyphagia Past Patient History - Past Medical History & Family History Past Medical History?: Yes - Past Social History Smoking Status: Never Smoked - CARDIAC Hx Hypertension: Yes - PULMONARY Hx Respiratory Disorders: No - NEUROLOGICAL Hx Neurological Disorder: No - HEENT Hx HEENT Problems: No - RENAL Hx Chronic Kidney Disease: No - ENDOCRINE/METABOLIC Hx Endocrine Disorders: No - HEMATOLOGICAL/ONCOLOGICAL Hx Blood Disorders: No - INTEGUMENTARY Hx Dermatological Problems: No - MUSCULOSKELETAL/RHEUMATOLOGICAL Hx Musculoskeletal Disorders: No Hx Falls: No - GASTROINTESTINAL Hx Gastrointestinal Disorders: No - GENITOURINARY/GYNECOLOGICAL Hx Genitourinary Disorders: No - PSYCHIATRIC Hx Substance Use: No - SURGICAL HISTORY Hx Appendectomy: Yes Hx Tonsillectomy: Yes - ANESTHESIA Hx Anesthesia: Yes Hx Anesthesia Reactions: No Hx Malignant Hyperthermia: No Meds Allergies/Adverse Reactions: Allergies Allergy/AdvReac Type Severity Reaction Status Date / Time No Known Allergies Allergy Verified 10/02/16 21:38 Physical Exam - Constitutional Appears: Non-toxic, No Acute Distress, Other (obese) - Head Exam Head Exam: ATRAUMATIC, NORMOCEPHALIC - Eye Exam Eye Exam: EOMI - ENT Exam ENT Exam: Mucous Membranes Moist - Neck Exam Additional comments: acanthosis nigricans - Respiratory Exam Respiratory Exam: Clear to Auscultation Bilateral, NORMAL BREATHING PATTERN. absent: Rales, Rhonchi, Wheezes - Cardiovascular Exam Cardiovascular Exam: +S1, +S2 - GI/Abdominal Exam GI & Abdominal Exam: Normal Bowel Sounds, Soft. absent: Tenderness - Extremities Exam Extremities exam: Negative for: calf tenderness Additional comments: bilateral non-pitting edema of lower extremities - Neurological Exam Neurological exam: Alert, Oriented x3 - Psychiatric Exam Psychiatric exam: Normal Affect - Skin Skin Exam: Dry, Warm Results - Vital Signs Recent Vital Signs: Last Vital Signs Temp 98 F 10/03/16 00:36 Pulse 84 10/03/16 00:36 Resp 20 10/03/16 00:36 BP 122/69 10/03/16 03:26 Pulse Ox 98 10/03/16 01:37 - Labs Result Diagrams: 10/02/16 22:47 10/02/16 22:47 Assessment & Plan - Assessment and Plan (Free Text) Assessment: New Onset Atrial flutter converted to sinus rhythm after 10mg cardizem IVP will check new echo last echo 08/2016: EF 50-55%, RV normal, LV moderate dilated, LA mildly dilated will start therapeutic lovenox 120mg sc BID start metoprolol 25mg BID first troponin negative, will continue to trend x2 more F/U EKG will check TSH cardiology consult placed for Dr. Stovall, saw patient on last admisison- help appreciated Dyspnea elevated d-dimer 3960 CTA negative for central pulmonary embolus, no aortic aneurysm HTN continue home medications hydralazine 25mg PO QID, losartan 100mg daily, HCTZ 12.5mg daily Diabetes will hold metformin in light acidosis, bicarb 20 ISS accuchecks ACHS may consider alternative oral hypoglycemic medication A1c 7.9 on last admission in August HLD continue crestor 10mg HS Prophylactic measure therapeutic lovenox protonix All medical management as per Dr. Cooper <Savage Cooper P - Last Filed: 10/03/16 08:30> Results - Vital Signs Recent Vital Signs: Last Vital Signs Temp 98.9 F 10/03/16 06:25 Pulse 69 10/03/16 07:31 Resp 18 10/03/16 07:31 BP 96/58 L 10/03/16 07:31 Pulse Ox 95 10/03/16 07:31 - Labs Result Diagrams: 10/03/16 04:58 10/03/16 04:58 Labs: Laboratory Results - last 24 hr 10/03/16 10/03/16 10/03/16 04:58 04:58 04:58 WBC 7.5 RBC 4.50 Hgb 13.4 Hct 39.7 MCV 88.3 MCH 29.9 MCHC 33.8 RDW 14.4 Plt Count 187 MPV 9.2 Neut % (Auto) 54.5 Lymph % (Auto) 29.3 [place] % (Auto) 11.8 H Eos % (Auto) 3.7 Baso % (Auto) 0.7 Neut # 4.1 Lymph # 2.2 [place] # 0.9 H Eos # 0.3 Baso # 0.1 Sodium 140 Potassium 3.9 Chloride 104 Carbon Dioxide 21 L Anion Gap 19 BUN 23 H Creatinine 1.2 Est GFR ( Amer) > 60 Est GFR (Non-Af Amer) > 60 POC Glucose (mg/dL) Random Glucose 87 Calcium 9.4 Total Bilirubin 0.6 AST 21 ALT 39 Alkaline Phosphatase 55 Total Creatine Kinase 97 CK-MB (Mass) 0.57 Troponin I, Quant < 0.0120 Total Protein 6.9 Albumin 4.0 Globulin 3.0 Albumin/Globulin Ratio 1.3 Triglycerides 127 D Cholesterol 92 LDL Cholesterol Direct 51 HDL Cholesterol 26 L TSH 3rd Generation 3.73 10/03/16 08:04 WBC RBC Hgb Hct MCV MCH MCHC RDW Plt Count MPV Neut % (Auto) Lymph % (Auto) [place] % (Auto) Eos % (Auto) Baso % (Auto) Neut # Lymph # [place] # Eos # Baso # Sodium Potassium Chloride Carbon Dioxide Anion Gap BUN Creatinine Est GFR ( Amer) Est GFR (Non-Af Amer) POC Glucose (mg/dL) 100 Random Glucose Calcium Total Bilirubin AST ALT Alkaline Phosphatase Total Creatine Kinase CK-MB (Mass) Troponin I, Quant Total Protein Albumin Globulin Albumin/Globulin Ratio Triglycerides Cholesterol LDL Cholesterol Direct HDL Cholesterol TSH 3rd Generation Attending/Attestation - Attestation I have personally seen and examined this patient.: Yes I have fully participated in the care of the patient.: Yes I have reviewed all pertinent clinical information: Yes Notes (Text): Aflutter with RVR, negative CTA, chronic mild AG metabolic acidosis may avoid metformin, h/o DM, recent negative stress test, LVH on the echo with h/o htn. Rhythm converted to sinus with iv 10mg cardizem. Reason for presentation to the hospital sob while on climbing on stairs yesterday which improve spontaneously, unaware or HR, and response to cardizem, suggesting possibility of intermittent asymptomatic episodes. Plan Change norvasc to metoprolol 25 mg bid to maintain rhythm Therapeutic anticoagulation due to lvh, htn, dm Possible out patient holter eval for frequency of rhythm Ischemia w/u according to patient's integrated circuit design engineer TSH Change metformin to januvia, due to chronic low bicarb See orders for detail. 10/03/16 08:29
[2016-10-03 05:05] LABS: BASO # 0.1 K/uL (0.0-0.2); BASO % 0.7 % (0.0-2.0); EOS # 0.3 K/uL (0.0-0.7); EOS % 3.7 % (0.0-4.0); HEMATOCRIT 39.7 % (35.0-51.0); LYMPH # 2.2 K/uL (1.0-4.3); LYMPH % 29.3 % (20.0-40.0); MEAN CELL VOLUME 88.3 fL (80.0-94.0); MEAN CORPUSCULAR HEMOGLOBIN 29.9 pg (27.0-31.0); MEAN CORPUSCULAR HGB CONC 33.8 g/dL (33.0-37.0); MEAN PLATELET VOLUME 9.2 fL (7.2-11.7); MONO # 0.9 K/uL (0.0-0.8); MONO % 11.8 % (0.0-10.0); RED CELL DISTRIBUTION WIDTH 14.4 % (11.5-14.5); WHITE BLOOD COUNT 7.5 K/uL (4.8-10.8)
[2016-10-03 05:26] LABS: ALB/GLOB RATIO 1.3 (1.0-2.1); ALKALINE PHOSPHATASE 55 U/L (38-126); ALT/SGPT 39 U/L (21-72); AST/SGOT 21 U/L (17-59); BILIRUBIN,TOTAL 0.6 mg/dL (0.2-1.3); BLOOD UREA NITROGEN 23 mg/dL (9-20); CALCIUM 9.4 mg/dl (8.6-10.4); CARBON DIOXIDE 21 mmol/L (22-30); CHLORIDE 104 mmol/L (98-107); CHOLESTEROL 92 mg/dL (0-199); GFR AFRICAN-AMERICAN > 60; GLUCOSE,RANDOM 87 mg/dL (75-110); POTASSIUM 3.9 mmol/L (3.6-5.2); SODIUM 140 mmol/L (132-148); TOTAL PROTEIN 6.9 g/dL (6.3-8.3)
[2016-10-03 05:55] LABS: THYROID STIMULATING HORMONE 3.73 mIU/L (0.46-4.68)
[2016-10-03] MEDS: (Novolin R) Insulin Human Regular 100 units/ml vial SC SCH ×4 (08:15→21:35)
[2016-10-03] MEDS ORDERED: Pantoprazole 40 mg EC Tab PO ONE (10:14)
[2016-10-03] MEDS: Pantoprazole 40 mg EC Tab PO SCH (10:21)
--- NOTE | 2016-10-03 11:47 | CARD ---
APPROVED REPORT EKG Measurement Heart [id number] [place] 130P0 [id number] <Conclusion> Normal sinus rhythm Minimal voltage criteria for LVH, may be normal variant Borderline ECG
--- NOTE | 2016-10-03 11:49 | CARD ---
APPROVED REPORT EKG Measurement Heart [id number] <Conclusion> Narrow QRS tachycardia Probable supraventricular tachycardia Nonspecific ST abnormality Abnormal ECG
--- NOTE | 2016-10-03 12:46 | RAD ---
HISTORY: chest pain COMPARISON: Chest x-ray performed 09/04/16 TECHNIQUE: Chest, one view. FINDINGS: Examination by habitus and hypoinflation. LUNGS: No focal consolidation. Please note that chest x-ray has limited sensitivity for the detection of pulmonary masses. PLEURA: No significant pleural effusion identified. No definite pneumothorax . CARDIOVASCULAR: Enlargement of the cardiomediastinal silhouette. Ectatic aorta. OSSEOUS STRUCTURES: Degenerative changes. VISUALIZED UPPER ABDOMEN: Unremarkable. OTHER FINDINGS: None. IMPRESSION: Hypoinflation. Enlargement of the cardiomediastinal silhouette. Ectatic aorta.
--- NOTE | 2016-10-03 19:07 | CARD ---
APPROVED REPORT EXAM: Two-dimensional and M-mode echocardiogram with Doppler and color Doppler. Other Information Quality : GoodRhythm : Atrial Flutter INDICATION Abnormal EKG/Arrhythmia New Onset Atrial Arrythmia 2D DIMENSIONS IVSd1.3 (0.7-1.1cm)LVDd5.6 (3.9-5.9cm) PWd1.3 (0.7-1.1cm)LVDs3.8 (2.5-4.0cm) FS (%) 30.8 %LVEF (%)57.7 (>50%) M-Mode DIMENSIONS Left Atrium (MM)4.21 (2.5-4.0cm)Aortic Root3.94 (2.2-3.7cm) Aortic Valve AI P 1/2 [id number] Mitral Valve MV E Ejdtxnsw71.3cm/sMV A Ceawgbxm07.9cm/sE/A ratio0.9 TDI E/Lateral E'0.0E/Medial E'0.0 Tricuspid Valve TR Peak Senmesdd525bl/sTR Peak Gr.[id number] LEFT VENTRICLE The left ventricle is normal size. There is mild concentric left ventricular hypertrophy. Left ventricle systolic function is normal. The Ejection Fraction is >70%. There is normal LV segmental wall motion. Transmitral Doppler flow pattern is Grade I-abnormal relaxation pattern. There is no ventricular septal defect visualized. RIGHT VENTRICLE The right ventricle is normal size. The right ventricular systolic function is normal. ATRIA The left atrium is borderline dilated. The right atrium size is normal. AORTIC VALVE The aortic valve is mildly sclerotic. The aortic valve is tri-cuspid. There is trace to mild aortic regurgitation. There is no aortic valvular stenosis. MITRAL VALVE The mitral valve is normal in structure. There is no evidence of mitral valve prolapse. There is no mitral valve regurgitation noted. TRICUSPID VALVE The tricuspid valve is normal in structure. There is trace tricuspid regurgitation. There is no pulmonary hypertension. PULMONIC VALVE The pulmonic valve is not well visualized. There is trace pulmonic valvular regurgitation. GREAT VESSELS The aortic root is normal in size. The IVC is normal in size and collapses >50% with inspiration. PERICARDIAL EFFUSION There is no pericardial effusion. <Conclusion> There is mild concentric left ventricular hypertrophy. Left ventricle systolic function is normal. The Ejection Fraction is >70%. Transmitral Doppler flow pattern is Grade I-abnormal relaxation pattern. There is trace to mild aortic regurgitation.
--- NOTE | 2016-10-03 20:07 | CARD ---
APPROVED REPORT EKG Measurement Heart [id number] [place] 146P-8 [id number] <Conclusion> Normal sinus rhythm Prolonged QT Abnormal ECG
--- NOTE | 2016-10-03 23:51 | CP.PCM.CON ---
History of Present Illness - History of Present Illness History of Present Illness: Well known by prior evaluation Admitted with sudden onset of palpitations and shortness of breath; IN the ER was noted to be in atrial flutter; rates responded to dilitazem and shortly later converted to sinus rhythm Denied chest pain syncope edema Past medical Systemic hypertension Diabetes Mellitus Hyperlipidemia Past surgical Appendectomy Lives in [facility] Denied smoking alcohol or drug abuse Past Patient History - Past Medical History & Family History Past Medical History?: Yes - Past Social History Smoking Status: Never Smoked - CARDIAC Hx Cardiac Disorders: Yes Hx Hypertension: Yes - PULMONARY Hx Respiratory Disorders: No - NEUROLOGICAL Hx Neurological Disorder: No - HEENT Hx HEENT Problems: No - RENAL Hx Chronic Kidney Disease: No - ENDOCRINE/METABOLIC Hx Endocrine Disorders: No - HEMATOLOGICAL/ONCOLOGICAL Hx Blood Disorders: No - INTEGUMENTARY Hx Dermatological Problems: No - MUSCULOSKELETAL/RHEUMATOLOGICAL Hx Musculoskeletal Disorders: No Hx Falls: No - GASTROINTESTINAL Hx Gastrointestinal Disorders: No - GENITOURINARY/GYNECOLOGICAL Hx Genitourinary Disorders: No - PSYCHIATRIC Hx Psychophysiologic Disorder: No Hx Substance Use: No - SURGICAL HISTORY Hx Surgeries: Yes Hx Appendectomy: Yes Hx Tonsillectomy: Yes - ANESTHESIA Hx Anesthesia: Yes Hx Anesthesia Reactions: No Hx Malignant Hyperthermia: No Has any member of the family had a problem w/ anesthesia?: No Meds Allergies/Adverse Reactions: Allergies Allergy/AdvReac Type Severity Reaction Status Date / Time No Known Allergies Allergy Verified 10/02/16 21:38 - Medications Medications: Current Medications Aspirin (Ecotrin) 81 mg PO DAILY [facility] Last Admin: 10/03/16 10:21 Dose: 81 mg Enoxaparin Sodium (Lovenox) 120 mg SC Q12 [facility] Last Admin: 10/03/16 21:32 Dose: 120 mg Hydralazine HCl (Apresoline) 25 mg PO QID [facility] Last Admin: 10/03/16 21:34 Dose: Not Given Hydrochlorothiazide (Microzide) 12.5 mg PO DAILY [facility] Last Admin: 10/03/16 10:43 Dose: 12.5 mg Insulin Human Regular (Novolin R) 0 unit SC ACHS [facility] PRN Reason: Protocol Last Admin: 10/03/16 21:35 Dose: Not Given Losartan Potassium (Cozaar) 100 mg PO DAILY [facility] Last Admin: 10/03/16 10:21 Dose: 100 mg Metoprolol Tartrate (Lopressor) 25 mg PO BID [facility] Last Admin: 10/03/16 18:25 Dose: Not Given Pantoprazole Sodium (Protonix Ec Tab) 40 mg PO DAILY [facility] Last Admin: 10/03/16 10:21 Dose: 40 mg Rosuvastatin Calcium (Crestor) 10 mg PO [facility] Last Admin: 10/03/16 21:32 Dose: 10 mg Physical Exam - Constitutional Appears: Well - Head Exam Head Exam: ATRAUMATIC, NORMAL INSPECTION, NORMOCEPHALIC - Eye Exam Eye Exam: EOMI, Normal appearance - ENT Exam ENT Exam: Mucous Membranes Moist - Neck Exam Neck exam: Positive for: Normal Inspection - Respiratory Exam Respiratory Exam: Clear to Auscultation Bilateral, NORMAL BREATHING PATTERN - Cardiovascular Exam Cardiovascular Exam: REGULAR RHYTHM - GI/Abdominal Exam GI & Abdominal Exam: Normal Bowel Sounds, Soft - Neurological Exam Neurological exam: Alert, CN II-XII Intact, Normal Gait, Oriented x3 - Psychiatric Exam Psychiatric exam: Normal Affect Results - Vital Signs Recent Vital Signs: Last Vital Signs Temp 98.0 F 10/03/16 17:26 Pulse 76 10/03/16 21:30 Resp 16 10/03/16 17:26 BP 101/68 10/03/16 21:30 Pulse Ox 96 10/03/16 17:26 - Labs Result Diagrams: 10/03/16 04:58 10/03/16 04:58 Labs: Laboratory Results - last 24 hr 10/03/16 10/03/16 10/03/16 04:58 04:58 04:58 WBC 7.5 RBC 4.50 Hgb 13.4 Hct 39.7 MCV 88.3 MCH 29.9 MCHC 33.8 RDW 14.4 Plt Count 187 MPV 9.2 Neut % (Auto) 54.5 Lymph % (Auto) 29.3 [place] % (Auto) 11.8 H Eos % (Auto) 3.7 Baso % (Auto) 0.7 Neut # 4.1 Lymph # 2.2 [place] # 0.9 H Eos # 0.3 Baso # 0.1 Sodium 140 Potassium 3.9 Chloride 104 Carbon Dioxide 21 L Anion Gap 19 BUN 23 H Creatinine 1.2 Est GFR ( Amer) > 60 Est GFR (Non-Af Amer) > 60 POC Glucose (mg/dL) Random Glucose 87 Calcium 9.4 Total Bilirubin 0.6 AST 21 ALT 39 Alkaline Phosphatase 55 Total Creatine Kinase 97 CK-MB (Mass) 0.57 Troponin I, Quant < 0.0120 Total Protein 6.9 Albumin 4.0 Globulin 3.0 Albumin/Globulin Ratio 1.3 Triglycerides 127 D Cholesterol 92 LDL Cholesterol Direct 51 HDL Cholesterol 26 L TSH 3rd Generation 3.73 10/03/16 10/03/16 10/03/16 08:04 11:38 11:45 WBC RBC Hgb Hct MCV MCH MCHC RDW Plt Count MPV Neut % (Auto) Lymph % (Auto) [place] % (Auto) Eos % (Auto) Baso % (Auto) Neut # Lymph # [place] # Eos # Baso # Sodium Potassium Chloride Carbon Dioxide Anion Gap BUN Creatinine Est GFR ( Amer) Est GFR (Non-Af Amer) POC Glucose (mg/dL) 100 89 Random Glucose Calcium Total Bilirubin AST ALT Alkaline Phosphatase Total Creatine Kinase 97 CK-MB (Mass) 0.46 Troponin I, Quant < 0.0120 Total Protein Albumin Globulin Albumin/Globulin Ratio Triglycerides Cholesterol LDL Cholesterol Direct HDL Cholesterol TSH 3rd Generation 10/03/16 10/03/16 17:24 20:51 WBC RBC Hgb Hct MCV MCH MCHC RDW Plt Count MPV Neut % (Auto) Lymph % (Auto) [place] % (Auto) Eos % (Auto) Baso % (Auto) Neut # Lymph # [place] # Eos # Baso # Sodium Potassium Chloride Carbon Dioxide Anion Gap BUN Creatinine Est GFR ( Amer) Est GFR (Non-Af Amer) POC Glucose (mg/dL) 74 114 H Random Glucose Calcium Total Bilirubin AST ALT Alkaline Phosphatase Total Creatine Kinase CK-MB (Mass) Troponin I, Quant Total Protein Albumin Globulin Albumin/Globulin Ratio Triglycerides Cholesterol LDL Cholesterol Direct HDL Cholesterol TSH 3rd Generation - Impressions Impression: EKG: narrow complex tachycardia with 2:1 AV block consistent with classic atrial flutter Echo: LVH LA mildly dilated Assessment & Plan - Assessment and Plan (Free Text) Assessment: Mr. Henson presented with sudden onset of palpitations and dyspnea and documented atrial flutter spontaneously reverting to sinus Hypertensive heart disease is likely the myocardial substrate supporting atrial flutter CHADS-VASC score warrants anticoagulation; either with NOAC or warfarin would obtain thyroid function He would be scheduled as an outpatient for an ablation The associated shortness of breath is likely due to daistolic load imposed on a stiff ventricle by rapid ventricular rates and asynchronous atrial contraction; coronary disease needs exclusion DW patient extensively caveats risks procedures and follow up; he verbalized understanding Plan: See above
[2016-10-04 06:15] LABS: BASO % 0.2 % (0.0-2.0); EOS # 0.4 K/uL (0.0-0.7); EOS % 7.1 % (0.0-4.0); HEMATOCRIT 38.5 % (35.0-51.0); LYMPH # 1.6 K/uL (1.0-4.3); LYMPH % 32.5 % (20.0-40.0); MEAN CELL VOLUME 87.8 fL (80.0-94.0); MEAN CORPUSCULAR HGB CONC 34.2 g/dL (33.0-37.0); MEAN PLATELET VOLUME 9.2 fL (7.2-11.7); MONO # 0.5 K/uL (0.0-0.8); MONO % 10.3 % (0.0-10.0); NRBC % 0.1 % (0.0-2.0); RED CELL DISTRIBUTION WIDTH 14.2 % (11.5-14.5)
[2016-10-04 07:18] LABS: CHLORIDE 105 mmol/L (98-107); POTASSIUM 3.9 mmol/L (3.6-5.2); SODIUM 140 mmol/L (132-148)
[2016-10-04 07:21] LABS: ALB/GLOB RATIO 1.1 (1.0-2.1); ALKALINE PHOSPHATASE 58 U/L (38-126); ALT/SGPT 37 U/L (21-72); AST/SGOT 21 U/L (17-59); BILIRUBIN,TOTAL 0.6 mg/dL (0.2-1.3); BLOOD UREA NITROGEN 20 mg/dL (9-20); CALCIUM 9.3 mg/dl (8.6-10.4); CARBON DIOXIDE 21 mmol/L (22-30); GFR AFRICAN-AMERICAN > 60; GLUCOSE,RANDOM 104 mg/dL (75-110); TOTAL PROTEIN 7.1 g/dL (6.3-8.3)
[2016-10-04] MEDS: (Novolin R) Insulin Human Regular 100 units/ml vial SC SCH ×2 (07:30→17:16)
[2016-10-04 07:46] LABS: THYROID STIMULATING HORMONE 1.65 mIU/L (0.46-4.68)
[2016-10-04] MEDS: Enoxaparin 120 mg Syringe SC SCH (10:02)
[2016-10-04] MEDS: Pantoprazole 40 mg EC Tab PO SCH (10:02)
--- NOTE | 2016-10-04 15:34 | CP.PCM.PN ---
Subjective - Date & Time of Evaluation Date of Evaluation: 10/04/16 Time of Evaluation: 15:15 - Subjective Subjective: Hospitalist Progress Note Patient was seen and examined at 3:15 PM. Very pleasant 60 year old male who was admitted for treatment of new onset Atrial Flutter. He was given Diltiazem while in the ER and coverted to Sinus Rhythm. He was seen by Cardiology and it was recommended he start anticoagulation based upon [id number] Score. Currently upon FULL ROS: NO chest pain NO palpitations NO SOB/Cough/Wheezing Moving his bowels NO lightheadedness/dizziness NO paresthesias NO other complaints upon FULL ROS Exam: HEENT: NCA, EOMI, PERRLA, NO cervical/supraclavicular/submandibular lymphadenopathy, NO pharyngeal erythema/exudate, Nasal Turbinates are nonerythematous/nonedematous, NO thyromegaly Cardio: NS1 and NS2, NO M/R/G Resp: CTA B/L, NO R/R/W GI: BSx4, Soft, NT, Central Obesity, Could not adequately palpate the liver and spleen, NO guarding/rebound tenderness Ext: Pulses are strong and equal, Capillary Refill is 2 seconds Neuro: CN II through XII are grossly intact Assessments: New Onset Atrial Flutter: now sinus rhythm D-dimer: CT Angio Chest shows NO PE HTN: DM 2 HLD Blood pressure is under control. Hear Rate is controlled. Blood Glucose is controlled. Patient is asymptomatic. He is stable for discharge. The following instructions were explained to patient and order placed to provide a copy to him upon discharge: 1). Please schedule follow up with your Primary Care Physician Dr. Shen to take place in the next 7 days. 2). Through Dr. Shen's office obtain referral for follow up with Check Writer Salesperson Dr. Stovall who has seen in the past. 3). You were provided with the following prescriptions upon your discharge and please take the medications as instructed: Metformin 500 mg, 1 tablet by mouth 2x/day (breakfast and dinner), Disp #60, NO refills Hydralazine 25 mg, 1 tablet by mouth 4x/day (7AM, 12 PM, 5PM, 10 PM), Disp #120 , NO refills Cozaar 100 mg, 1 tablet by mouth 1x/day (2 PM), Disp #30, NO refills Metoprolol Tartrate 25 mg, 1 tablet by mouth 2x/day (10 AM and 10 PM), Disp #60 , NO refills Crestor 10 mg, 1 tablet by mouth 1x/day (with dinner), Disp #30, NO refills 4). You were provided with pills for Eliquis which is blood thinner that you need to be on for the abnormal heart rhythm. As dicussed you have to be careful as this medication can cause severe bleeding if you are injured. It is need to prevent blood clots from forming. You will need to obtain refills from Dr. Shen. Please take 1 tablet by mouth with breakfast and 1 tablet by mouth with dinner. 5). DO NOT TAKE your home medication of Norvasc and DO NOT TAKE your home medication of Losartan/HCTZ 6). Please take care of yourself and be well. Sarbjit Raphael D.O. Objective - Vital Signs/Intake and Output Vital Signs (last 24 hours): Temp Pulse Resp BP Pulse Ox 98.2 F 72 18 120/70 98 10/04/16 07:15 10/04/16 07:35 10/04/16 07:15 10/04/16 10:01 10/04/16 07:15 Intake and Output: 10/04/16 10/04/16 06:59 18:59 Intake Total 320 Balance 320 - Medications Medications: Current Medications Aspirin (Ecotrin) 81 mg PO DAILY [facility] Last Admin: 10/04/16 10:00 Dose: 81 mg Enoxaparin Sodium (Lovenox) 120 mg SC Q12 [facility] Last Admin: 10/04/16 10:02 Dose: 120 mg Hydralazine HCl (Apresoline) 25 mg PO QID [facility] Last Admin: 10/04/16 10:00 Dose: 25 mg Hydrochlorothiazide (Microzide) 12.5 mg PO DAILY [facility] Last Admin: 10/04/16 10:02 Dose: 12.5 mg Insulin Human Regular (Novolin R) 0 unit SC ACHS [facility] PRN Reason: Protocol Last Admin: 10/04/16 07:30 Dose: Not Given Losartan Potassium (Cozaar) 100 mg PO DAILY [facility] Last Admin: 10/04/16 10:19 Dose: 100 mg Metoprolol Tartrate (Lopressor) 25 mg PO BID [facility] Last Admin: 10/04/16 10:01 Dose: 25 mg Pantoprazole Sodium (Protonix Ec Tab) 40 mg PO DAILY [facility] Last Admin: 10/04/16 10:02 Dose: 40 mg Rosuvastatin Calcium (Crestor) 10 mg PO [facility] Last Admin: 10/03/16 21:32 Dose: 10 mg - Labs Labs: 10/04/16 06:07 10/04/16 06:07
[2016-10-04 16:27] VITALS: PULSE 65; RESP 20; TEMP 98.3; O2SAT 97
--- NOTE | 2016-10-04 16:33 | CP.PCM.DIS ---
<Da Saavedra - Last Filed: 10/04/16 16:01> Provider - Provider Date of Admission: 10/03/16 01:37 Attending physician: Sarbjit Raphael MD Primary care physician: [place] Consults: Ameen Time Spent in preparation of Discharge (in minutes): 40 Diagnosis - Discharge Diagnosis (1) Atrial flutter Status: Chronic Priority: High (2) Diabetes Status: Chronic Priority: Medium (3) Hypertension Status: Chronic Priority: Medium Hospital Course - Lab Results Lab Results: Most Recent Lab Values WBC 5.0 K/uL (4.8-10.8) 10/04/16 06:07 RBC 4.38 Mil/uL (4.40-5.90) L 10/04/16 06:07 Hgb 13.2 g/dL (12.0-18.0) 10/04/16 06:07 Hct 38.5 % (35.0-51.0) 10/04/16 06:07 MCV 87.8 fL (80.0-94.0) 10/04/16 06:07 MCH 30.0 pg (27.0-31.0) 10/04/16 06:07 MCHC 34.2 g/dL (33.0-37.0) 10/04/16 06:07 RDW 14.2 % (11.5-14.5) 10/04/16 06:07 Plt Count 190 K/uL (130-400) 10/04/16 06:07 MPV 9.2 fL (7.2-11.7) 10/04/16 06:07 Neut % (Auto) 49.9 % (50.0-75.0) L 10/04/16 06:07 Lymph % (Auto) 32.5 % (20.0-40.0) 10/04/16 06:07 Yates % (Auto) 10.3 % (0.0-10.0) H 10/04/16 06:07 Eos % (Auto) 7.1 % (0.0-4.0) H 10/04/16 06:07 Baso % (Auto) 0.2 % (0.0-2.0) 10/04/16 06:07 Neut # 2.5 K/uL (1.8-7.0) 10/04/16 06:07 Lymph # 1.6 K/uL (1.0-4.3) 10/04/16 06:07 Yates # 0.5 K/uL (0.0-0.8) 10/04/16 06:07 Eos # 0.4 K/uL (0.0-0.7) 10/04/16 06:07 Baso # 0.0 K/uL (0.0-0.2) 10/04/16 06:07 D-Dimer, Quantitative 3960 ng/mlDDU (0-243) H 10/02/16 22:47 Sodium 140 mmol/L (132-148) 10/04/16 06:07 Potassium 3.9 mmol/L (3.6-5.2) 10/04/16 06:07 Chloride 105 mmol/L (98-107) 10/04/16 06:07 Carbon Dioxide 21 mmol/L (22-30) L 10/04/16 06:07 Anion Gap 18 (10-20) 10/04/16 06:07 BUN 20 mg/dL (9-20) 10/04/16 06:07 Creatinine 1.2 MG/DL (0.8-1.5) 10/04/16 06:07 Est GFR ( Amer) > 60 10/04/16 06:07 Est GFR (Non-Af Amer) > 60 10/04/16 06:07 POC Glucose (mg/dL) 112 mg/dL (65-110) H 10/04/16 11:44 Random Glucose 104 mg/dL (75-110) 10/04/16 06:07 Hemoglobin A1c 6.8 % (4.2-6.5) H 10/04/16 06:07 Calcium 9.3 mg/dl (8.6-10.4) 10/04/16 06:07 Total Bilirubin 0.6 mg/dL (0.2-1.3) 10/04/16 06:07 AST 21 U/L (17-59) 10/04/16 06:07 ALT 37 U/L (21-72) 10/04/16 06:07 Alkaline Phosphatase 58 U/L (38-126) 10/04/16 06:07 Total Creatine Kinase 97 U/L (55-170) 10/03/16 11:45 CK-MB (Mass) 0.46 ng/mL (0.0-3.38) 10/03/16 11:45 Troponin I < 0.0120 ng/mL (0.00-0.120) 10/02/16 22:47 Troponin I, Quant < 0.0120 ng/mL (0.00-0.120) 10/03/16 11:45 Total Protein 7.1 g/dL (6.3-8.3) 10/04/16 06:07 Albumin 3.8 g/dL (3.5-5.0) 10/04/16 06:07 Globulin 3.3 gm/dL (2.2-3.9) 10/04/16 06:07 Albumin/Globulin Ratio 1.1 (1.0-2.1) 10/04/16 06:07 Triglycerides 127 mg/dL (0-149) D 10/03/16 04:58 Cholesterol 92 mg/dL (0-199) 10/03/16 04:58 LDL Cholesterol Direct 51 mg/dL (0-129) 10/03/16 04:58 HDL Cholesterol 26 mg/dL (30-70) L 10/03/16 04:58 Free T4 1.05 ng/dL (0.78-2.19) 10/04/16 06:07 TSH 3rd Generation 1.65 mIU/L (0.46-4.68) 10/04/16 06:07 - Hospital Course Hospital Course: Patient is a 60 year old male with PMHx HTN, HLD, and diabetes who presents to the ED with complaint of shortness of breath. Patient states he was walking up the 3 flights of stairs to his apartment yesterday evening around 7pm when he became short of breath. Patient states this has never happened to him before. Patient states when he got in his apartment he felt short of breath again later. Patient states although his symptoms resolved he was concerned because this was a first time occurrence so he came to the ED. Patient states he took a bus to the ED and felt fine upon arrival. Patient denies chest pain of palpitations. Patient denies difficulty breathing. Patient had EKG in the ER which showed atrial flutter. Patient was given cardizem and converted to sinus rhythm. Patient states he felt no different prior to or after receiving cardizem. Patient states he has been compliant with all medications prescribed at last admission and has followed up with his PMD since discharge from the hospital. Patient is due to see his icer air conditioning, Dr. Stovall soon. Dr. Stovall saw the patient and suggested that he would need to follow up outpatient for a possible ablation. In the interm he should be placed on either NOAC or warfarin. He was stable thru the night and was discharged on Eliquis and told to follow up with his primary doctor as well as Dr. Stovall in one weeks time. - Date & Time of H&P Date of H&P: 10/03/16 Time of H&P: 03:54 Discharge Exam - Head Exam Head Exam: ATRAUMATIC, NORMAL INSPECTION, NORMOCEPHALIC - Eye Exam Eye Exam: EOMI - ENT Exam ENT Exam: Mucous Membranes Moist - Respiratory Exam Respiratory Exam: NORMAL BREATHING PATTERN, UNREMARKABLE. absent: Decreased Breath Sounds, Rales, Wheezes, Stridor - Cardiovascular Exam Cardiovascular Exam: REGULAR RHYTHM - GI/Abdominal Exam GI & Abdominal Exam: Normal Bowel Sounds, Soft. absent: Distended, Firm, Tenderness - Neurological Exam Neurological exam: Alert, Oriented x3 - Psychiatric Exam Psychiatric exam: Normal Affect, Normal Mood - Skin Skin Exam: Dry, Intact, Normal Color, Warm Discharge Plan - Discharge Medications Prescriptions: Apixaban [Eliquis] 5 mg PO BID #30 tablet hydrALAZINE [Apresoline] 25 mg PO QID #120 tab Losartan [Cozaar] 100 mg PO DAILY #30 tab metFORMIN [glucOPHAGE] 500 mg PO BID #60 tab Metoprolol Tartrate [Lopressor] 25 mg PO BID #60 tab Rosuvastatin Calcium [Crestor] 10 mg PO DAILY #30 tab - Follow Up Plan Condition: STABLE Disposition: HOME/ ROUTINE Instructions: Metoprolol (By mouth), Hydralazine (By mouth), Losartan (By mouth ), Rosuvastatin (By mouth), Apixaban (By mouth), Atrial Flutter (DC), Heart Healthy Diet (DC) Additional Instructions: The following instructions were explained to patient and order placed to provide a copy to him upon discharge: 1). Please schedule follow up with your Primary Care Physician Dr. Shen to take place in the next 7 days. 2). Through Dr. Shen's office obtain referral for follow up with [facility] Dr. Stovall who has seen in the past. 3). You were provided with the following prescriptions upon your discharge and please take the medications as instructed: Metformin 500 mg, 1 tablet by mouth 2x/day (breakfast and dinner), Disp #60, NO refills Hydralazine 25 mg, 1 tablet by mouth 4x/day (7AM, 12 PM, 5PM, 10 PM), Disp #120 , NO refills Cozaar 100 mg, 1 tablet by mouth 1x/day (2 PM), Disp #30, NO refills Metoprolol Tartrate 25 mg, 1 tablet by mouth 2x/day (10 AM and 10 PM), Disp #60 , NO refills Crestor 10 mg, 1 tablet by mouth 1x/day (with dinner), Disp #30, NO refills 4). You were provided with pills for Eliquis which is blood thinner that you need to be on for the abnormal heart rhythm. As dicussed you have to be careful as this medication can cause severe bleeding if you are injured. It is need to prevent blood clots from forming. You will need to obtain refills from Dr. Shen. Please take 1 tablet by mouth with breakfast and 1 tablet by mouth with dinner. 5). DO NOT TAKE your home medication of Norvasc and DO NOT TAKE your home medication of Losartan/HCTZ 6). Please take care of yourself and be well. Referrals: Zonia Stovall MD [Staff Provider] - Tayler Ellis MD [IM] - <Sarbjit Raphael - Last Filed: 10/04/16 18:47> Provider - Provider Date of Admission: 10/03/16 01:37 Attending physician: Sarbjit Raphael MD Hospital Course - Lab Results Lab Results: Most Recent Lab Values WBC 5.0 K/uL (4.8-10.8) 10/04/16 06:07 RBC 4.38 Mil/uL (4.40-5.90) L 10/04/16 06:07 Hgb 13.2 g/dL (12.0-18.0) 10/04/16 06:07 Hct 38.5 % (35.0-51.0) 10/04/16 06:07 MCV 87.8 fL (80.0-94.0) 10/04/16 06:07 MCH 30.0 pg (27.0-31.0) 10/04/16 06:07 MCHC 34.2 g/dL (33.0-37.0) 10/04/16 06:07 RDW 14.2 % (11.5-14.5) 10/04/16 06:07 Plt Count 190 K/uL (130-400) 10/04/16 06:07 MPV 9.2 fL (7.2-11.7) 10/04/16 06:07 Neut % (Auto) 49.9 % (50.0-75.0) L 10/04/16 06:07 Lymph % (Auto) 32.5 % (20.0-40.0) 10/04/16 06:07 Yates % (Auto) 10.3 % (0.0-10.0) H 10/04/16 06:07 Eos % (Auto) 7.1 % (0.0-4.0) H 10/04/16 06:07 Baso % (Auto) 0.2 % (0.0-2.0) 10/04/16 06:07 Neut # 2.5 K/uL (1.8-7.0) 10/04/16 06:07 Lymph # 1.6 K/uL (1.0-4.3) 10/04/16 06:07 Yates # 0.5 K/uL (0.0-0.8) 10/04/16 06:07 Eos # 0.4 K/uL (0.0-0.7) 10/04/16 06:07 Baso # 0.0 K/uL (0.0-0.2) 10/04/16 06:07 D-Dimer, Quantitative 3960 ng/mlDDU (0-243) H 10/02/16 22:47 Sodium 140 mmol/L (132-148) 10/04/16 06:07 Potassium 3.9 mmol/L (3.6-5.2) 10/04/16 06:07 Chloride 105 mmol/L (98-107) 10/04/16 06:07 Carbon Dioxide 21 mmol/L (22-30) L 10/04/16 06:07 Anion Gap 18 (10-20) 10/04/16 06:07 BUN 20 mg/dL (9-20) 10/04/16 06:07 Creatinine 1.2 MG/DL (0.8-1.5) 10/04/16 06:07 Est GFR ( Amer) > 60 10/04/16 06:07 Est GFR (Non-Af Amer) > 60 10/04/16 06:07 POC Glucose (mg/dL) 158 mg/dL (65-110) H 10/04/16 17:01 Random Glucose 104 mg/dL (75-110) 10/04/16 06:07 Hemoglobin A1c 6.8 % (4.2-6.5) H 10/04/16 06:07 Calcium 9.3 mg/dl (8.6-10.4) 10/04/16 06:07 Total Bilirubin 0.6 mg/dL (0.2-1.3) 10/04/16 06:07 AST 21 U/L (17-59) 10/04/16 06:07 ALT 37 U/L (21-72) 10/04/16 06:07 Alkaline Phosphatase 58 U/L (38-126) 10/04/16 06:07 Total Creatine Kinase 97 U/L (55-170) 10/03/16 11:45 CK-MB (Mass) 0.46 ng/mL (0.0-3.38) 10/03/16 11:45 Troponin I < 0.0120 ng/mL (0.00-0.120) 10/02/16 22:47 Troponin I, Quant < 0.0120 ng/mL (0.00-0.120) 10/03/16 11:45 Total Protein 7.1 g/dL (6.3-8.3) 10/04/16 06:07 Albumin 3.8 g/dL (3.5-5.0) 10/04/16 06:07 Globulin 3.3 gm/dL (2.2-3.9) 10/04/16 06:07 Albumin/Globulin Ratio 1.1 (1.0-2.1) 10/04/16 06:07 Triglycerides 127 mg/dL (0-149) D 10/03/16 04:58 Cholesterol 92 mg/dL (0-199) 10/03/16 04:58 LDL Cholesterol Direct 51 mg/dL (0-129) 10/03/16 04:58 HDL Cholesterol 26 mg/dL (30-70) L 10/03/16 04:58 Free T4 1.05 ng/dL (0.78-2.19) 10/04/16 06:07 TSH 3rd Generation 1.65 mIU/L (0.46-4.68) 10/04/16 06:07 Attending/Attestation - Attestation I have personally seen and examined this patient.: Yes I have fully participated in the care of the patient.: Yes I have reviewed all pertinent clinical information, including history, physical exam and plan: Yes Notes (Text): 10/04/16 18:46 Please also see my progress note. Sarbjit Raphael D.O.
[2016-10-04 17:18] VITALS: BP 118/75
== END 2016-10-04 18:30 | disposition home or self-care (01) ==
LOC: C.ER 21:23 → C.9E 10-03 01:37 → C.6T 10-03 15:28
PROVIDERS: ADMIT Family Medicine; ATTEND Family Medicine
DX: I48.92 Unspecified atrial flutter (principal); E11.9 Type 2 diabetes mellitus without complications; E78.5 Hyperlipidemia, unspecified; E87.2 Acidosis; I11.9 Hypertensive heart disease without heart failure; I44.0 Atrioventricular block, first degree; E66.9 Obesity, unspecified; Z68.35 Body mass index [BMI] 35.0-35.9, adult
CPT/HCPCS: 36415; 71010; 71275; 80053; 80061; 82948; 83036; 84439; 84443; 84484; 85025; 85378; 93005; 93306; 96372; 96374; 99285; G0378; J1650; Q9967